=== PATIENT | male | born 1970 | race Caucasian/White ===

== ENCOUNTER 2016-09-02 10:13 | Emergency (ER) | payer BC, OTHER ==
[2016-09-02 10:35] VITALS: BP 134/77
--- NOTE | 2016-09-02 11:32 | RAD ---
Indication: Crushing injury. Attention first metatarsal. Comparison: None. Technique: AP, lateral, and oblique views RIGHT foot. Report: Negative for fracture or malalignment. Mild osteophytosis and joint space narrowing at the first metatarsal phalangeal joint. Unremarkable soft tissue contours. IMPRESSION: No traumatic injury evident. Mild osteoarthritis at the first metatarsal phalangeal joint.
--- NOTE | 2016-09-02 12:31 | UC ---
Lower Extremity/Ankle HPI - HPI Summary HPI Summary: RIGHT FOOT CAUGHT BETWEEN TRUCK AND WALL, CRUSHED AT 10 AM. NO BLEEDING NO BRUISING. PAIN WITH WALKING. - History of Current Complaint Chief Complaint: UCLowerExtremity Stated Complaint: FOOT INJURY Time Seen by Provider: 09/02/16 10:41 Hx Obtained From: Patient Onset/Duration: Sudden Onset, Lasting Hours, Still Present Severity Initially: Moderate Severity Currently: Moderate Aggravating Factor(s): Standing, Ambulation Alleviating Factor(s): Rest, Elevation Able to Bear Weight: No Related History: Occupational Injury - Risk Factors Gout Risk Factors: Negative DVT Risk Factors: Negative Septic Arthritis Risk Factor: Negative - Allergies/Home Medications Allergies/Adverse Reactions: Allergies Allergy/AdvReac Type Severity Reaction Status Date / Time Aspirin Allergy Unknown Unknown Verified 09/02/16 10:35 Reaction Details PMH/Surg Hx/FS Hx/Imm Hx Previously Healthy: Yes Endocrine History Of: Denies: Diabetes, Thyroid Disease Cardiovascular History Of: Denies: Cardiac Disorders, Hypertension Respiratory History Of: Denies: COPD, Asthma GI/ History Of: Denies: Ulcer Other History Of: Hepatitis C - Surgical History Surgical History: Yes Surgery Procedure, Year, and Place: inguinal hernia repair x4, right knee surgery - Family History Known Family History: Negative: Cardiac Disease, Hypertension, Diabetes Family History: NON CONTRIBUTORY - Social History Occupation: Employed Full-time Lives: With Family Alcohol Use: None Substance Use Type: Marijuana Substance Use Comment - Amount & Last Used: daily Smoking Status (MU): Heavy Every Day Tobacco Smoker Type: Cigarettes Amount Used/How Often: 1ppd Length of Time of Smoking/Using Tobacco: 23 years Have You Smoked in the Last Year: Yes - Immunization History Most Recent Influenza Vaccination: Never gets this Most Recent Tetanus Shot: UTD Review of Systems Constitutional: Negative Skin: Negative Eyes: Negative ENT: Negative Respiratory: Negative Cardiovascular: Negative Gastrointestinal: Negative Genitourinary: Negative Motor: Negative Neurovascular: Negative Musculoskeletal: Arthralgia, Edema, Myalgia Neurological: Negative Psychological: Negative All Other Systems Reviewed And Are Negative: Yes Physical Exam Triage Information Reviewed: Yes Appearance: Well-Appearing, No Pain Distress, Well-Nourished, Thin Vital Signs: Initial Vital Signs Temp 97.8 F 09/02/16 10:30 Pulse 79 09/02/16 10:30 Resp 20 09/02/16 10:30 BP 134/77 09/02/16 10:30 Pulse Ox 100 09/02/16 10:30 Vital Signs Reviewed: Yes Eye Exam: Normal Eyes: Positive: Conjunctiva Clear ENT Exam: Normal ENT: Positive: Normal ENT inspection, Hearing grossly normal, Pharynx normal, TMs normal Dental Exam: Normal Neck exam: Normal Neck: Positive: Supple, Nontender, No Lymphadenopathy Respiratory Exam: Normal Respiratory: Positive: Chest non-tender, Lungs clear, Normal breath sounds, No respiratory distress, No accessory muscle use Cardiovascular Exam: Normal Cardiovascular: Positive: RRR, No Murmur, Pulses Normal Abdominal Exam: Normal Musculoskeletal: Positive: Strength Intact, ROM Intact, Edema @ - MILD EDEMA RIGHT FOOT Neurological Exam: Normal Psychological Exam: Normal Skin Exam: Normal Lower Extremity Course/Dx - Differential Dx/Diagnosis Differential Diagnosis/HQI/PQRI: Fracture (Closed), Sprain, Strain Provider Diagnoses: CRUSH INJURY/SPRAIN RIGHT FOOT Discharge - Discharge Plan Condition: Stable Disposition: HOME Patient Education Materials: Foot Contusion (ED), Foot Sprain (ED), Crush Injury (ED) Forms: *Work Release Referrals: [facility] [Outside] [facility] [Outside] No Primary Care Phys,NOPCP [Primary Care Provider] - Sumit Banda MD [Medical Doctor] -
== END 2016-09-02 12:18 | disposition home or self-care (01) ==
LOC: UCEAST 10:13
DX: S93.601A Unspecified sprain of right foot, initial encounter (principal); W23.0XXA Caught, crushed, jammed, or pinched between moving objects, initial encounter; Y93.9 Activity, unspecified; Y92.9 Unspecified place or not applicable; Z88.6 Allergy status to analgesic agent; F12.90 Cannabis use, unspecified, uncomplicated; F17.210 Nicotine dependence, cigarettes, uncomplicated
CPT/HCPCS: 99213; G0463

== ENCOUNTER 2017-06-30 08:41 | Emergency (ER) | payer OTHER ==
[2017-06-30 08:57] VITALS: BP 145/79
--- NOTE | 2017-06-30 11:51 | UC ---
Tramaine Torres Nilda, scribed for Merlyn Reyes DO on 06/30/17 at 1024 . Back Pain HPI - HPI Summary HPI Summary: This patient is a 47 year old M presenting to [facility] [place] with a chief complaint of constant and rapidly expanding numbness on his right thigh, right buttocks, right lower back, and right side of abdomen for the past 4 days. Pt states that on 06/19/17, pt was heavy lifting at work and heard an audible pop and had severe lower back pain. The patient rates the pain 7/10 in severity. Symptoms aggravated by quick movement and coughing. Symptoms alleviated by rest. Patient reports RLE weakness, night diaphoresis (past few months), and recent constipation (not currently present). Patient denies fever, chills, rash, headache, abnormal urinary symptoms, ecchymosis, swelling, inability to have an erection, and bowel incontinence. Medications include ibuprofen for joint pain. - History of Current Complaint Chief Complaint: UCBackPain Stated Complaint: BACK INJURY Time Seen by Provider: 06/30/17 09:45 Hx Obtained From: Patient Onset/Duration: Sudden Onset, Lasting Days - 5 days, Still Present Timing: Constant Severity Initially: Moderate Severity Currently: Severe Pain Intensity: 7 Pain Scale Used: 0-10 Numeric Back Pain: Is Discrete @ - lower back pain, Radiates To - lower leg Character: Sharp, Aching Aggravating Factor(s): Movement, Cough Alleviating Factor(s): Rest Associated Signs And Symptoms: Positive: Weakness, Numbness, Tingling, Other - numbness on his right thigh, right buttocks, right lower back, and right side of abdomen, RLE weakness, night diaphoresis (past few months), and constipation (not currently present). Patient denies fever, chills, rash, headache, abnormal urinary symptoms, ecchymosis, swelling, inability to have an erection, and bowel incontinence.. Negative: Swelling, Redness, Bruising, Fever, Bladder Incontinence, Bowel Incontinence Related History: Occupational Injury - Risk Factors Cauda Equina Risk Factors: Saddle Anesthesia, Lower Extemity Numbness, Lower Extremity Weakness - Allergies/Home Medications Allergies/Adverse Reactions: Allergies Allergy/AdvReac Type Severity Reaction Status Date / Time Aspirin Allergy Unknown Unknown Verified 06/30/17 08:57 Reaction Details PMH/Surg Hx/FS Hx/Imm Hx Previously Healthy: Yes Other History Of: Hepatitis C - Surgical History Surgical History: Yes Surgery Procedure, Year, and Place: inguinal hernia repair x4, right knee surgery - Family History Known Family History: Negative: Cardiac Disease, Hypertension, Diabetes Family History: NON CONTRIBUTORY - Social History Alcohol Use: Occasionally Substance Use Type: None Substance Use Comment - Amount & Last Used: daily Smoking Status (MU): Heavy Every Day Tobacco Smoker Type: Cigarettes Amount Used/How Often: 1ppd Length of Time of Smoking/Using Tobacco: 23 years Have You Smoked in the Last Year: Yes Household Exposure Type: Cigarettes - Immunization History Most Recent Influenza Vaccination: NOT UTD Most Recent Tetanus Shot: UTD Review of Systems Constitutional: Other - negative fever and chills Skin: Other - night sweats; negative rash Gastrointestinal: Other - constipation, negative abnormal bowel symptoms Genitourinary: Other - negative abnormal urinary symptoms, inability to have an erection Musculoskeletal: Other: - numbness on his right thigh, right buttocks, right lower back, and right side of abdomen, RLE weakness Neurological: Other - negative headache All Other Systems Reviewed And Are Negative: Yes Physical Exam Triage Information Reviewed: Yes Appearance: Well-Appearing, Well-Nourished, Pain Distress - moderate Vital Signs: Initial Vital Signs Temp 99.3 F 06/30/17 08:52 Pulse 74 06/30/17 08:52 Resp 16 06/30/17 08:52 BP 145/79 06/30/17 08:52 Pulse Ox 99 06/30/17 08:52 Vital Signs Reviewed: Yes Eyes: Positive: Conjunctiva Clear. Negative: Discharge ENT: Positive: Hearing grossly normal. Negative: Muffled voice, Hoarse voice Neck exam: Normal Neck: Positive: Supple Respiratory: Positive: Lungs clear, Normal breath sounds, No respiratory distress, No accessory muscle use Cardiovascular: Positive: RRR, No Murmur Abdomen Description: Positive: Nontender, Soft. Negative: Distended, Guarding Bowel Sounds: Positive: Present Musculoskeletal: Positive: Other: - numbness in all dermatomes T10 through S5. It wraps around outside of thigh, in butt cheek in perineal area along medial thigh. Diffuse loss of strength and reflexes in RLE. Neurological: Positive: Alert, Other: - numbness in all dermatomes T10 through S5. It wraps around outside of thigh, in butt cheek in perineal area along medial thigh. Diffuse loss of strength and reflexes in RLE. Psychological Exam: Normal Psychological: Positive: Age Appropriate Behavior Skin Exam: Normal Skin: Positive: Other - warm, dry, normal color Back Pain Course/Dx - Course Course Of Treatment: This patient is a 47 year old M presenting to [facility] [place] with a chief complaint of constant numbness on his right thigh, right buttocks, right lower back, and right side of abdomen for the past 5 days. Pt states that on , pt was heavy lifting at work and heard an audible pop and felt severe lower back pain. The patient rates the pain 7/10 in severity. Symptoms aggravated by quick movement and coughing. Symptoms alleviated by rest. Patient reports RLE weakness and night diaphoresis (past few months). Patient denies fever, chills, rash, headache, abnormal urinary symptoms, ecchymosis, swelling, inability to have an erection, and abnormal bowel symptoms. Medications include ibuprofen for joint pain. Medications reviewed. Allergies reviewed. [1014] Dr. Garcia (ED Physician): gave report of pt and discussed evaluation plan. Pt is stable and will be transferred to [facility]. Pt is agreeable with this plan. - Differential Dx/Diagnosis Differential Diagnosis/HQI/PQRI: Cauda Equina Syndrome, Compressive Cord Syndrome, Herniated Disc, Strain Provider Diagnoses: cauda equina syndrom Discharge - Discharge Plan Condition: Stable Disposition: TRANS HIGHER LVL OF CARE FAC Referrals: No Primary Care Phys,NOPCP [Primary Care Provider] - The documentation as recorded by the Tramaine nguyen Nilda accurately reflects the service I personally performed and the decisions made by , Merlyn Reyes DO.
== END 2017-06-30 11:04 | disposition short-term general hospital (02) ==
LOC: UCEAST 08:41
DX: G83.4 Cauda equina syndrome (principal); F17.210 Nicotine dependence, cigarettes, uncomplicated; Z88.6 Allergy status to analgesic agent
CPT/HCPCS: 99203; G0463

== ENCOUNTER 2017-06-30 11:20 | Emergency (ER) | payer SELFPAY ==
--- NOTE | 2017-06-30 14:38 | RAD ---
HISTORY: Back pain, right leg weakness and numbness COMPARISONS: None TECHNIQUE: The following sequences were obtained of the thoracic spine: Sagittal T1 and T2-weighted images, sagittal STIR images, coronal T2-weighted images, and axial T2-weighted images. . FINDINGS: Localization is based on counting from C2 SPINAL CORD, CONUS, AND CAUDA EQUINA: The visualized spinal cord, conus, and cauda equina are normal in caliber, position, and signal intensity. ALIGNMENT: The alignment is normal. VERTEBRAL BODIES: There is multilevel anterolateral marginal osteophyte formation. There are mild Modic type I reactive endplate changes at T7-T8. JOINTS: There is osteoporosis of the costovertebral articulations. MUSCULATURE: Unremarkable INTERVERTEBRAL DISCS: There is diffuse loss of intervertebral disc height and T2 signal throughout the spine. AXIAL IMAGES: At T7-T8, there is broad-based disc bulge. At T12-L1, there is a right lateral recess superior disc extrusion measuring 0.5 cm in depth. There is no significant neural foraminal narrowing or central canal stenosis. SOFT TISSUES: The visualized soft tissues of the chest and upper abdomen are unremarkable. OTHER: None. IMPRESSION: 1. DEGENERATIVE DISC DISEASE AND OSTEOARTHRITIS. 2. THERE IS A RIGHT SIDED SUPERIOR DISC EXTRUSION AT T12-L1. 3. THERE IS NO SIGNIFICANT NEURAL FORAMINAL NARROWING OR CENTRAL CANAL STENOSIS
--- NOTE | 2017-06-30 14:42 | RAD ---
HISTORY: Right leg weakness and numbness COMPARISONS: MRI of the thoracic spine dated June 30, 2017 TECHNIQUE: The following sequences were obtained of the lumbar spine: Sagittal and axial T1- and T2-weighted images, coronal T2-weighted images, and sagittal STIR images. FINDINGS: SPINAL CORD, CONUS, AND CAUDA EQUINA: The visualized spinal cord, conus, and cauda equina are normal in caliber, position, and signal intensity. ALIGNMENT: There is straightening of the lumbar lordosis. VERTEBRAL BODIES: There is multilevel anterolateral marginal osteophyte formation. There are Modic type I reactive end plate changes at L4-L5. JOINTS: There is diffuse facet osteoarthritis. MUSCULATURE: Unremarkable INTERVERTEBRAL DISCS: There is diffuse loss of intervertebral disc height and T2 signal throughout the spine. AXIAL IMAGES: T11-T12: There is no significant neural foraminal narrowing or central canal stenosis. T12-L1: There is a right lateral recess superior disc extrusion measuring 0.6 cm in depth and 1.7 cm in craniocaudal dimension. This abuts and displaces the descending nerve roots on the right. There is no significant neural foraminal narrowing or central canal stenosis. L1-L2: There is a mild disc bulge. There is bilateral facet hypertrophy. There is no significant neural foraminal narrowing or central canal stenosis. L2-L3: There is broad-based disc bulge. There is mild bilateral neuroforaminal narrowing. There is no significant central canal stenosis. L3-L4: There is a broad-based disc bulge. There is bilateral facet hypertrophy. There is moderate bilateral neural foraminal narrowing. There is mild narrowing of the central canal. L4-L5: There is broad-based disc bulge. There is bilateral facet hypertrophy. There is moderate to severe bilateral neural foraminal narrowing. There is no significant central canal stenosis. L5-S1: There is bilateral facet hypertrophy. There is mild bilateral neural foraminal narrowing. There is no significant central canal stenosis. SOFT TISSUES: The visualized soft tissues of the abdomen are unremarkable. OTHER: None. IMPRESSION: 1. DEGENERATIVE DISC DISEASE AND OSTEOARTHRITIS. 2. THERE IS A RIGHT-SIDED DISC EXTRUSION AT T12-L1. 3. THERE IS MILD NARROWING OF THE CENTRAL CANAL AT L3-L4. 4. THERE IS MULTILEVEL NEURAL FORAMINAL NARROWING DESCRIBED ABOVE
--- NOTE | 2017-06-30 17:27 | RAD ---
HISTORY: Numbness, right-sided low back pain COMPARISONS: MRI dated June 30, 2017 TECHNIQUE: Multiple contiguous axial CT scans were obtained of the thoracic spine without intravenous contrast, with coronal and sagittal multiplanar reformations. FINDINGS: SPINAL CANAL: Evaluation of the central canal is limited on CT technique; however, there is no obvious canalicular mass or epidural hemorrhage. ALIGNMENT: The alignment is normal. VERTEBRAL BODIES: There is multilevel anterolateral marginal osteophyte formation. Multiple Schmorl's nodes are noted. JOINTS: There is osteoarthritis of the costovertebral articulations. MUSCULATURE: Unremarkable INTERVERTEBRAL DISCS: There is diffuse loss of intervertebral disc height throughout the spine. AXIAL IMAGES: There is no osseous central canal stenosis or neuroforaminal narrowing. The T12-L1 disc extrusion noted on MRI is not well-visualized on current CT examination. SOFT TISSUES: The visualized soft tissues of the chest and abdomen are unremarkable. OTHER: None IMPRESSION: DEGENERATIVE DISC DISEASE AND OSTEOARTHRITIS. NO OSSEOUS NEURAL FORAMINAL AREA OR CENTRAL CANAL STENOSIS.
--- NOTE | 2017-06-30 17:42 | RAD ---
HISTORY: Low back pain, right leg pain COMPARISONS: February 05, 2016 VIEWS: 3 , frontal, lateral flexion, lateral extension views of the lumbar spine FINDINGS: ALIGNMENT: There is straightening of the normal lumbar lordosis. There is no subluxation with flexion and extension VERTEBRAL BODIES: The vertebral body heights are normal. The interpedicular distances are normal. There is multilevel anterolateral marginal osteophyte formation. JOINTS: There is diffuse facet hypertrophic change INTERVERTEBRAL DISCS: There is diffuse loss of intervertebral disc height. SOFT TISSUE: Unremarkable. OTHER: The pelvis is unremarkable. The lung bases are clear. IMPRESSION: DEGENERATIVE DISC DISEASE AND OSTEOARTHRITIS.
[2017-06-30 17:58] VITALS: BP 144/93
--- NOTE | 2017-06-30 17:59 | ED ---
Gui Torres Angela, scribed for Alexey Garcia MD on 06/30/17 at 1134 . Back Pain - HPI Summary HPI Summary: This pt is a 47 y/o male presenting to [facility] from [facility] c/o lower back pain and RLE numbness x4 days. Pt reports that on 06/19/17, he was at work doing heavy lifting and heard a pop sustaining severe lower back pain. Pt states that he began having right lower leg numbness and right lower back numbness radiating around his umbilicus since , 06/26/17. He denies any urinary or bowel incontinence. Pt currently rates his pain 5-6 out of 10 in severity. His pain is aggravated by movement or sitting down. Pt notes he will be donating his kidney to his fiancee. - History of Current Complaint Chief Complaint: EDBackInjuryPain Stated Complaint: BACK PAIN Time Seen by Provider: 06/30/17 11:25 Hx Obtained From: Patient Onset/Duration: Lasting Days, Still Present Onset/Duration: Started Days Ago, Still Present Timing: Lasting Days Back Pain Location: Is Discrete @ - lower back Severity Currently: Moderate Pain Intensity: 6 Pain Scale Used: 0-10 Numeric Aggravating Symptom(s): Movement, Other - sitting down Associated Signs And Symptoms: Positive: Numbness - in right leg, right lower back, right side of abd. Negative: Bladder Incontinence, Bowel Incontinence - Allergies/Home Medications Allergies/Adverse Reactions: Allergies Allergy/AdvReac Type Severity Reaction Status Date / Time Aspirin Allergy Unknown Unknown Verified 06/30/17 08:57 Reaction Details PMH/Surg Hx/FS Hx/Imm Hx Endocrine/Hematology History: Denies: Hx Diabetes, Hx Thyroid Disease Cardiovascular History: Denies: Hx Hypertension Respiratory History: Denies: Hx Asthma, Hx Chronic Obstructive Pulmonary Disease (COPD) GI History: Denies: Hx Ulcer - Surgical History Surgery Procedure, Year, and Place: inguinal hernia repair x4, right knee surgery Infectious Disease History: Reports: Hx of Known/Suspected MRSA - MRSA 2009 right hand Denies: Hx Clostridium Difficile, Hx Hepatitis, Hx Human Immunodeficiency Virus (HIV), Hx Shingles, Hx Tuberculosis, Hx Known/Suspected VRE, Hx Known/ Suspected VRSA, History Other Infectious Disease - Family History Known Family History: Negative: Cardiac Disease, Hypertension, Diabetes - Social History Alcohol Use: Occasionally Hx Substance Use: Yes Substance Use Type: Reports: None Substance Use Comment - Amount & Last Used: daily Hx Tobacco Use: Yes Smoking Status (MU): Heavy Every Day Tobacco Smoker Type: Cigarettes Amount Used/How Often: 1ppd Length of Time of Smoking/Using Tobacco: 23 years Have You Smoked in the Last Year: Yes Review of Systems Negative: Fever, Chills Eyes: Negative ENT: Negative Cardiovascular: Negative Respiratory: Negative Gastrointestinal: Negative Negative: incontinence - urinary or bowel Musculoskeletal: Other - lower back pain Positive: Numbness - in right LE, right lower back, right side of abd All Other Systems Reviewed And Are Negative: Yes Physical Exam - Summary Physical Exam Summary: General: well-appearing Skin: warm, color reflects adequate perfusion, dry Head: normal Eyes: EOMI, LEENA ENT: normal Neck: supple, nontender Respiratory: CTA, breath sounds present Cardiovascular: RRR Abdomen: soft, nontender Bowel: present Musculoskeletal: tender in the low back to include the right buttock, worse over the L2-L3. There is pain with ROM of the legs. Patellar reflex is 1+ bilaterally. There is decreased strength on right leg with hip flexion, knee flexion, ankle plantarflexion and dorsiflexion. Neurological: A&O x3. Normal sensation below the knees. Decreased sensation on the right lateral thigh and right lateral abd below the xiphoid. Decreased sensation on right buttock. Psychological: affect/mood appropriate Triage Information Reviewed: Yes Vital Signs On Initial Exam: Initial Vitals Temp Pulse Resp BP Pulse Ox 99.3 F 77 18 147/95 97 06/30/17 11:27 06/30/17 11:27 06/30/17 11:27 06/30/17 11:27 06/30/17 11:27 Vital Signs Reviewed: Yes Diagnostics - Vital Signs Vital Signs Temp Pulse Resp BP Pulse Ox 06/30/17 15:33 99.5 F 80 20 164/84 97 06/30/17 11:28 68 97 06/30/17 11:27 99.3 F 77 18 147/95 97 06/30/17 11:26 147/95 - Laboratory Lab Statement: Any lab studies that have been ordered have been reviewed, and results considered in the medical decision making process. - Radiology Lumbar spine XR Xray Interpretation: Positive (See Comments) - IMPRESSION: Degenerative disc disease and osteoarthritis. Dr. Garcia has reviewed this radiology report. Radiology Interpretation Completed By: Radiologist - CT Thoracic spine CT CT Interpretation: No Acute Changes - IMPRESSION: Degenerative disc disease and osteoarthritis. No osseous neural foraminal area or central canal stenosis. Dr. Garcia has reviewed this radiology report. CT Interpretation Completed By: Radiologist - Additional Comments Diagnostic Additional Comments: Thoracic Spine MRI, as read per radiologist: IMPRESSION: 1. Degenerative disc disease and osteoarthritis. 2. There is a right sided superior disc extrusion at T12-L1. 3. There is no significant neural foraminal narrowing or cental canal stenosis. Dr. Garcia has reviewed this radiology report. Lumbar Spine MRI, as read per radiologist: IMPRESSION: 1. Degenerative disc disease and osteoarthritis. 2. There is a right-sided disc extrusion at T12-L1. 3. There is mild narrowing of the central canal at L3-L4. 4. There is multilevel neural foraminal narrowing as described above. Dr. Garcia has reviewed this radiology report. Re-Evaluation - Re-Evaluation First Eval Re-Evaluation Time: 15:50 Comment: I reviewed the MRI results with the pt. Back Pain Course/Dx - Course Course Of Treatment: Medications reviewed. Allergies noted. BP noted and advised to follow up with PCP. Thoracic spine MRI shows 1. Degenerative disc disease and osteoarthritis. 2. There is a right sided superior disc extrusion at T12-L1. 3. There is no significant neural foraminal narrowing or cental canal stenosis. Lumbar spine MRI shows 1. Degenerative disc disease and osteoarthritis. 2. There is a right-sided disc extrusion at T12-L1. 3. There is mild narrowing of the central canal at L3-L4. 4. There is multilevel neural foraminal narrowing as described above. Thoracic spine CT shows Degenerative disc disease and osteoarthritis. No osseous neural foraminal area or central canal stenosis. Lumbar spine XR: Degenerative disc disease and osteoarthritis. DISCUSSED WITH DR STYLES, NEUROSURGERY. PATIENT IS TO FOLLOW UP WITH HIM AN OUT PATIENT. RETURN TO THE ED IF WORSE. - Diagnoses Provider Diagnoses: Low back pain, Lumbar radiculopathy - Provider Notifications Discussed Care Of Patient With: Fabian Khan Time Discussed With Above Provider: 16:17 Instructed by Provider To: Other - I discussed the pt's case with Dr. Dimopoulos. Discharge - Discharge Plan Condition: Stable Disposition: HOME Patient Education Materials: Acute Low Back Pain (ED), Lumbar Radiculopathy (ED ) Forms: *Work Release Referrals: No Primary Care Phys,NOPCP [Primary Care Provider] - Fabian Khan MD [Medical Doctor] - Additional Instructions: FOLLOW UP WITH NEUROSURGERY, DR STYLES. CALL HIS OFFICE TOMORROW, 07/01/17, IN THE MORNING TO ARRANGE FOLLOW UP. RETURN TO THE EMERGENCY DEPARTMENT FOR ANY WORSENING OF YOUR CONDITION; WEAKNESS , NUMBNESS, DIFFICULTY CONTROLLING BOWEL OR BLADDER OR QUESTIONS OR CONCERNS. The documentation as recorded by the Gui nguyen Angela accurately reflects the service I personally performed and the decisions made by me, Alexey Garcia MD.
== END 2017-06-30 18:07 | disposition home or self-care (01) ==
LOC: ED 11:20
DX: M54.5 Low back pain (principal); M54.16 Radiculopathy, lumbar region; F17.210 Nicotine dependence, cigarettes, uncomplicated; R20.0 Anesthesia of skin
CPT/HCPCS: 72114; 72128; 72146; 72148; 99282

== ENCOUNTER 2017-10-02 07:30 | Observation (INO) | payer OTHER ==
[~2017-10-02 07:30] MED LIST: Bacitracin IV* 50,000 UNITS INJ ONE; Famotidine IV* 10 MG/ML 2 ML (20 mg) IV ONE; Lidocaine 1% MPF wEPI 200,000* 30 ML SDV ONE; Metoclopramide TAB* 10 MG PO ONE; Thrombin 5,000 UNITS* 1 APPLIC KIT - topical use - TOPICAL ONE
[2017-10-02] MEDS ORDERED: Famotidine IV* 10 MG/ML 2 ML (20 mg) ONE (07:51)
[2017-10-02] MEDS ORDERED: ceFAZolin 2 GM in 100 MLS NS (*) BAG IVPB ONE (07:52)
[2017-10-02] MEDS ORDERED: Buffered Lidocaine 0.9% SYRIN* 5 ML/SYR SYRINGE ONE (07:52)
[2017-10-02] MEDS ORDERED: Metoclopramide TAB* 10 MG ONE (07:52)
[2017-10-02] MEDS ORDERED: Artificial Tear OPHTH.OINT* 3.5 GM ONE (07:54)
[2017-10-02] MEDS ORDERED: Phenylephrine INJ* 10 MG/ML 1 ML VIAL (10 MG) ONE ×2 (07:57→09:08)
[2017-10-02] MEDS ORDERED: Propofol* 10 MG/ML 20 ML BTL IV PUSH ONE (07:57)
[2017-10-02] MEDS ORDERED: Dexamethasone IV* 4 MG/ML 1 ML (4 MG) ONE (07:57)
[2017-10-02] MEDS ORDERED: Lidocaine 2% PF * 5 ML VIAL ONE (07:57)
[2017-10-02] MEDS ORDERED: Sodium Chloride 0.9%* 10 ML ONE (07:57)
[2017-10-02] MEDS ORDERED: Mivacurium Chloride* 20 MG/10 ML VIAL IV ONE (07:57)
[2017-10-02] MEDS ORDERED: KETAMINE HCL* 50 MG/ML 10 ML VIAL ONE (07:57)
[2017-10-02] MEDS ORDERED: Ondansetron INJ* 2 MG/ML VIAL ONE (07:57)
[2017-10-02] MEDS ORDERED: fentaNYL* 50 MCG/ML 2 ML VIAL (100 MCG VIAL) ONE ×3 (07:57→12:08)
[2017-10-02] MEDS ORDERED: Remifentanil* 2 MG VIAL ONE ×2 (07:58→10:06)
[2017-10-02] MEDS ORDERED: Midazolam* 1 MG/ML 10 ML VIAL (10 MG) ONE (07:58)
[2017-10-02] MEDS ORDERED: Propofol* 500 MG/50 ML BTL ONE ×2 (08:05→10:06)
[2017-10-02] MEDS: Buffered Lidocaine 0.9% SYRIN* 5 ML/SYR SYRINGE INTRADERM ONE ×2 (08:17→08:21)
[2017-10-02] MEDS ORDERED: HYDROmorphone INJ* 1 MG/ML CARPUJECT SYRINGE ONE ×2 (10:55→11:25)
--- NOTE | 2017-10-02 11:22 | RAD ---
INDICATION: Neurosurgical fluoroscopic guidance COMPARISON: None FINDINGS: 15 seconds of fluoroscopy were provided for the neurosurgical department. Fluoroscopic spot imaging of the thoracoabdominal spine were obtained for operative control. CPT II Codes: 6045F (fluoro time doc)
[2017-10-02] MEDS ORDERED: Ondansetron INJ* 2 MG/ML VIAL IV PRN ×2 (11:52→12:11)
[2017-10-02] MEDS ORDERED: Naloxone* 0.4 MG/ML 1 ML VIAL IV PRN (11:52)
[2017-10-02] MEDS ORDERED: Levalbuterol 0.63MG/3ML NEB* UNIT OF USE INH PRN (11:52)
[2017-10-02] MEDS ORDERED: HYDROmorphone INJ* 2 MG/ML CARPUJECT SYRINGE ONE (12:08)
[2017-10-02] MEDS: fentaNYL* 50 MCG/ML 2 ML VIAL (100 MCG VIAL) IV PRN ×2 (12:09→12:19)
[2017-10-02] MEDS ORDERED: Magnesium Hydroxide LIQ* 30 ML UDC PO PRN (12:11)
[2017-10-02] MEDS ORDERED: Acetaminophen TAB* 325 MG PO PRN (12:11)
[2017-10-02] MEDS ORDERED: Nicotine Inhaler* 10 MG AMP INH PRN (12:19)
[2017-10-02] MEDS ORDERED: Mouth Piece, Nicotine* 1 EACH CARTRIDGE INH PRN ×2 (12:19)
[2017-10-02] MEDS: HYDROmorphone INJ* 1 MG/ML CARPUJECT SYRINGE IV PRN ×3 (12:20→12:54)
[2017-10-02] MEDS: HYDROcodone/ACETAMIN 5-325 MG* 1 TAB PO PRN ×3 (13:49→22:28)
[2017-10-02] MEDS: Nicotine PATCH 21 MG/24 HR* PATCH TRANSDERM SCH (13:49)
[2017-10-03] MEDS: HYDROcodone/ACETAMIN 5-325 MG* 1 TAB PO PRN ×4 (05:42→18:19)
[2017-10-03] MEDS ORDERED: Nicotine Patch Removal NOTE FOLLOW UP SCH (06:00)
[2017-10-03] MEDS: Nicotine PATCH 21 MG/24 HR* PATCH TRANSDERM SCH (09:47)
--- NOTE | 2017-10-03 17:43 | PN ---
Progress Note - Progress Note Date of Service: 10/03/17 SOAP: Subjective: []No events ON. Ambulates, Voids, Preop back pain resolved. Patient very satisfied, wants to go home. Objective: []Wound soft, clean, dry. MARLA removed. Patient tolerated procedure well, Catheter appeared to be intact. VSS, Afebrile. AAOx3, LEENA, CN II-XII grossly intact. Motor 5/5 all extremities. Sensory grossly intact to light touch, except preop decreased sensation right lateral abdominal wall Assessment: []47 yo m POD#1 Rt T12-L1 hemilaminectomy and fragmentectomy Plan: []Monitor VS, Neurochecks. DC planning. Ninfa Khan MD
[2017-10-03 19:41] VITALS: BP 130/81
--- NOTE | 2017-10-04 09:31 | OP ---
CC: Dr. Shawn Polanco * DATE OF OPERATION: 10/02/17 - ROOM #332 DATE OF : 66 SURGEON: Fabian Khan MD CO-SURGEON: Shawn Polanco MD ANESTHESIA: General. PRE-OP DIAGNOSIS: Right T12-L1 herniated nucleus pulposus. POST-OP DIAGNOSIS: Right T12-L1 herniated nucleus pulposus. OPERATIVE PROCEDURE: The patient underwent right T12 hemilaminectomy with partial medial facetectomy and transpedicular approach for removal of extruded disk fragment. ESTIMATED BLOOD LOSS: 35 cc. COMPLICATIONS: None. SUMMARY: The patient is a very pleasant 47-year-old gentleman who experienced an abrupt onset of back pain radiating to the right side of his abdomen with a right lower extremity pain. He developed a pseudohernia and MRI of his thoracic spine revealed right T12-L1 extruded disk fragment. He was offered the option of surgical intervention after failing conservative treatment modalities and after explaining expectations, limitations, possible complications of the procedure with complications including but not limited to bleeding, infection, risk of injury to adjacent structures, coma, paralysis, , need for additional procedures, anesthesia risk, stroke, blindness, cancer, instability, need for additional procedures in the future, anesthesia risks, the patient was agreeable to proceed with surgery and informed consent was obtained. He understood that his condition may not improve and in fact may get worse after the surgery and that he may need to have additional procedures in the future. He understood also that the operative plan may be modified according to intraoperative findings and conditions. DESCRIPTION OF PROCEDURE: The patient was brought to the operating room and was placed under general anesthesia by the anesthesia team. He was carefully positioned on the Tyler frame on a Benjamin table and all bony prominences were meticulously padded. His skin was prepped and draped in a sterile fashion. After appropriate surgical pause and patient identification, intraoperative fluoroscopic imaging was used to localize the appropriate surgical level. An incision over the spinous process of T12 was made in the midline after the skin was infiltrated with local anesthetic. A #10 blade was used for the incision. The incision was advanced with the use of Bovie cautery and self-retaining retractors were introduced further into the field. The dorsal fascia was divided in the right side and the paraspinal musculature was elevated with use of periosteal elevator and Bovie cautery . The right kylie-lamina of T12 was exposed as well as the transverse process and all the way down to the T12-L1 facet. A high speed drill and Kerrison punches were used to perform an extended hemilaminectomy of T12 with partial facet resection as well as resection of the inferior medial portion of the right T12 pedicle. Microscopic magnification was used for the procedure. The thecal sac and the T12 nerve root was readily identified and the posterior ligament was identified lateral to the thecal sac without any retraction of the thecal sac. After gentle coagulation of the posterior ligament, a medium size disk fragment was identified and was resected carefully without any pressure into the adjacent nerve root or into the the thecal sac. After copious irrigation and confirmation of meticulous hemostasis , the wound was closed by layers after placing #7 MARLA drain through a separate stab wound incision. A #0 Vicryl suture in an interrupted fashion was used in order to approximate the dorsal fascia while the subcutaneous tissue was approximated with interrupted 2-0 Vicryl sutures. The skin was covered with Dermabond. At the end of the procedure, all counts were reported to be correct. The patient remained hemodynamically stable throughout the case. Intraoperatively, the patient's neurophysiological monitoring was stable throughout the case. The patient was then turned supine, was extubated and was transferred to Recovery in excellent condition, moving all his extremities well. The case was done with two attending physicians because of the complexity of the case. [id number]/CPS #: [id number] CHUCK
== END 2017-10-03 18:30 | disposition home or self-care (01) ==
LOC: AA 07:46 → INTOOBSV 07:46 → SSU 13:14
PROVIDERS: ADMIT Neurological Surgery; ATTEND Neurological Surgery
PROC: 01N80ZZ Release Thoracic Nerve, Open Approach (ICD-10-PCS; 2017-10-02)
PROC: 0RB90ZZ Excision of Thoracic Vertebral Disc, Open Approach (ICD-10-PCS; principal; 2017-10-02 07:30)
DX: M51.14 Intervertebral disc disorders with radiculopathy, thoracic region (principal); M51.15 Intervertebral disc disorders with radiculopathy, thoracolumbar region; F17.200 Nicotine dependence, unspecified, uncomplicated
CPT/HCPCS: 76001; 87641; 96374; A9270-GY; G0378; J1100; J1170; J2001; J2250; J2405; J2704; J3010

== ENCOUNTER 2018-05-04 14:53 | Emergency (ER) | payer OTHER ==
--- OUTSIDE RECORDS SUMMARY | 2018-05-04 15:51 | XMS REPORT ---
:1970 External Reference #:[id number] Author Organization [employer] 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 Onset: 07/29/2017 Neck pain Fabain Khan MD Active Social History Type Date Description Comments Lives With Occupation Disabled 06/19/17 WC back injury Work Status Not Currently Working ETOH Use Rarely consumes alcohol Smoking Patient is a current smoker, smokes every day Recreational Drug Use Denies Drug Use Daily Caffeine Consumes on average 1 soda per day Exercise Type/Frequency Exercises regularly Allergies, Adverse Reactions, Alerts Date Description Reaction Status Severity Comments 03/16/2009 NKDA active Medications Medication Date Status Form Strength Qnty SIG Indications Ordering Provider No Active Active Unknown Medications 017 Clindamycin Hx 300mg 56units 1 tab by Chan 011 - mouth Young, every 6 M.D. 017 hours Percocet Hx Tablets 5-325mg 40tabs 1-2 po Dirk 011 - q4h prn Amaury, pain M.D. 017 Sertraline HCL Hx Tablets 100mg 30tabs 1 po qd 296.20 Thananart , 009 - Yuliet, M.D. 017 Sertraline HCL Hx Tablets 25mg 60tabs 1 tab po 296.20 Thananart , 009 - qd x 7 Yuliet, days, M.D. 009 then 2 tabs po qd Flexeril Hx Tablets 10mg 30tabs 1 po tid 724.2 Thananart, 009 - prn Yuliet, M.D. 017 Vicodin Hx Tablets 5-500mg 20tabs 1 q 4-6 724.2 Thananart, 009 - hrs prn Yuliet, pain M.D. 017 Bupropion HCL Hx Tablets ER 150mg 60tabs 1 tab po 300.00 Thananart, 009 - 24HR qd x 7 Yuliet, days, M.D. 017 then 2 tabs po qd Ibuprofen /0 Hx Capsules 200mg 800 mg Unknown 000 - daily 017 Vital Signs Date Vital Result Comment 05/04/2018 Height 70 inches 5'10" Heart Rate 76 /min BP Systolic Sitting 132 mmHg BP Diastolic Sitting 90 mmHg Respiratory Rate 20 /min Body Temperature 97.0 F 02/16/2018 Height 70 inches 5'10" Weight 157.00 lb BP Systolic Sitting 124 mmHg BP Diastolic Sitting 90 mmHg BMI (Body Mass Index) 22.5 kg/m2 01/22/2018 BP Systolic Sitting 140 mmHg Lue reg cuff BP Diastolic Sitting 92 mmHg Lue reg cuff Body Temperature 96.6 F 11/19/2017 Height 70 inches 5'10" Weight 157.00 lb BP Systolic Sitting 122 mmHg BP Diastolic Sitting 80 mmHg Pain Level 0 BMI (Body Mass Index) 22.5 kg/m2 10/10/2017 Height 70 inches 5'10" Weight 157.00 lb Heart Rate 86 /min BP Systolic Sitting 140 mmHg BP Diastolic Sitting 100 mmHg Body Temperature 98.0 F Pain Level 0 BMI (Body Mass Index) 22.5 kg/m2 09/23/2017 Height 70 inches 5'10" Weight 157.00 lb Heart Rate 78 /min BP Systolic Sitting 150 mmHg BP Diastolic Sitting 80 mmHg Pain Level 9 BMI (Body Mass Index) 22.5 kg/m2 08/19/2017 Height 70 inches 5'10" Weight 157.00 lb Heart Rate 74 /min BP Systolic Sitting 124 mmHg BP Diastolic Sitting 74 mmHg Pain Level 4 BMI (Body Mass Index) 22.5 kg/m2 07/29/2017 Height 70 inches 5'10" Weight 157.00 lb Heart Rate 80 /min BP Systolic Sitting 122 mmHg BP Diastolic Sitting 76 mmHg Pain Level 3 BMI (Body Mass Index) 22.5 kg/m2 07/08/2017 Height 70 inches 5'10" Weight 157.00 lb Heart Rate 70 /min BP Systolic Sitting 120 mmHg BP Diastolic Sitting 71 mmHg Pain Level 4 BMI (Body Mass Index) 22.5 kg/m2 05/29/2009 Height 70 inches 5'10" Weight 169.00 lb Heart Rate 82 /min BP Systolic Sitting 116 mmHg BP Diastolic Sitting 86 mmHg BMI (Body Mass Index) 24.2 kg/m2 05/01/2009 Height 70 inches 5'10" Weight 171.00 lb Heart Rate 84 /min BP Systolic Sitting 112 mmHg BP Diastolic Sitting 84 mmHg BMI (Body Mass Index) 24.5 kg/m2 03/16/2009 Height 70 inches 5'10" Weight 172.00 lb Heart Rate 88 /min BP Systolic Sitting 110 mmHg BP Diastolic Sitting 72 mmHg BMI (Body Mass Index) 24.7 kg/m2 Results Test Date Test Result H/L Range Note Urinalysis Profile 10/01/2017 Urine Color Straw Urine Appearance Clear Urine Specific [place] 1.003 Low 1.010-1.030 Urine pH 7.0 5-9 Urine Urobilinogen Negative Negative Urine Ketones Negative Negative Urine Protein Negative Negative Urine Leukocytes Negative Negative Urine Blood Negative Negative Urine Nitrite Negative Negative Urine Bilirubin Negative Negative Urine Glucose Negative Negative CBC Auto Diff 10/01/2017 White Blood Count 11.9 10^3/uL High 3.5-10.8 Red Blood Count 5.21 10^6/uL 4.0-5.4 Hemoglobin 16.4 g/dL 14.0-18.0 Hematocrit 47 % 42-52 Mean Corpuscular Volume 91 fL 80-94 Mean Corpuscular Hemoglobin 32 pg High 27-31 Mean Corpuscular HGB Conc 35 g/dL 31-36 Red Cell Distribution Width 12 % 10.5-15 Platelet Count 325 10^3/uL 150-450 Mean Platelet Volume 7 um3 Low 7.4-10.4 Abs Neutrophils 7.9 10^3/uL High 1.5-7.7 Abs Lymphocytes 2.7 10^3/uL 1.0-4.8 Abs Monocytes 0.8 10^3/uL 0-0.8 Abs Eosinophils 0.3 10^3/uL 0-0.6 Abs Basophils 0.2 10^3/uL 0-0.2 Abs Nucleated RBC 0 10^3/uL Granulocyte % 66.1 % 38-83 Lymphocyte % 22.7 % Low 25-47 Monocyte % 7.1 % High 0-7 Eosinophil % 2.8 % 0-6 Basophil % 1.3 % 0-2 Nucleated Red Blood Cells % 0 Basic Metabolic Panel 09/25/2017 Sodium 138 mmol/L 133-145 Potassium 4.0 mmol/L 3.5-5.0 Chloride 103 mmol/L 101-111 Co2 Carbon Dioxide 27 mmol/L 22-32 Anion Gap 8 mmol/L 2-11 Glucose 125 mg/dL High 70-100 Blood Urea Nitrogen 9 mg/dL 6-24 Creatinine 0.99 mg/dL 0.67-1.17 BUN/Creatinine Ratio 9.1 8-20 Calcium 9.4 mg/dL 8.6-10.3 Egfr Non- 80.3 >60 Egfr 103.3 >60 1 Type & Screen 09/25/2017 Patient Blood Type O Positive Antibody Screen NEGATIVE Inr/Protime 09/25/2017 Inr 0.86 0.77-1.02 CBC No Diff 09/25/2017 White Blood Count 13.0 10^3/uL High 3.5-10.8 Red Blood Count 4.90 10^6/uL 4.0-5.4 Hemoglobin 15.4 g/dL 14.0-18.0 Hematocrit 45 % 42-52 Mean Corpuscular Volume 92 fL 80-94 Mean Corpuscular Hemoglobin 31 pg 27-31 Mean Corpuscular HGB Conc 34 g/dL 31-36 Red Cell Distribution Width 13 % 10.5-15 Platelet Count 307 10^3/uL 150-450 Mean Platelet Volume 8 um3 7.4-10.4 Lead 05/01/2009 Lead < 1.0 g/dL 0-25.0 2 Lead Specimen Type VENOUS Lipid Profile (Trig/Chol/HDL) 05/01/2009 Triglyceride 140 mg/dL 40-200 Cholesterol 204 mg/dL High Less Than 200 3 High Density Lipoprotein 36 mg/dL Low 40-60 4 Cholesterol/HDL Ratio 5.67 AVERAGE High 1-4.97 Low Density Lipoprotein 140 mg/dL High Less Than 100 5 CBC With Electronic Diff 05/01/2009 White Blood Count 10.0 CUMM 4.8-10.8 Red Cell Count 4.86 CUMM 4.6-6.2 Hemoglobin 15.4 g/dL 14.0-18.0 Hematocrit 45 % 42-52 Mean Corpuscular Volume 93 um3 80-94 Mean Corpuscular Hemoglob 32 pg High 27-31 Mean Corpuscular HGB Cone 34 g/dL 32-36 Redcell Distribution WDTH 13 % 10.5-15 Platelet Count 318 CUMM 150-450 Mean Platelet Volume 7.1 um3 Low 7.4-10.4 Gran % 59.6 % 38-83 Lymph % 29.2 % 25-47 Mononuclear % 8.4 % 1-9 Eosinophil % 2.3 % 0-6 Basophil % 0.5 % 0-2 Abs Lymphs 2.9 1.0-4.8 Abs Mononuclear 0.8 0-0.8 Absolute Neutrophil Count 5.9 1.5-7.7 Abs Eosinophils 0.2 0-0.6 Abs Basophils 0 0-0.2 Laboratory test finding 05/01/2009 TSH 1.30 MIU/ML 0.34-5.60 Comp Metabolic Panel 05/01/2009 Sodium 137 mmol/L 135-145 Potassium 4.3 mmol/L 3.5-5.0 Chloride 97 mmol/L Low 101-111 Co2 (Carbon Dioxide) 28.0 mmol/L 22-32 Anion Gap 12.0 mmol/L High 2-11 6 Glucose 91 mg/dL 70-100 7 BUN 9 mg/dL 6-24 Creatinine 0.90 mg/dL 0.50-1.40 One Over Creatinine 1.10 BUN/Creatinine Ratio 10.0 8-20 Calcium 9.3 mg/dL 8.1-9.9 8 Total Protein 6.6 GM/DL 6.2-8.1 Albumin 4.2 GM/DL 3.6-5.4 Globulin 2.4 GM/DL 2-4 Albumin/Globulin Ratio 1.8 1-3 Bilirubin Total 0.8 mg/dL 0.4-1.5 9 Alkaline Phosphatase 95 U/L 39-117 Alt (SGPT) 43 U/L 17-63 Ast (Sgot) 28 U/L 12-42 eGFR Non- 99.3 > 60 eGFR 120.2 > 60 10 1 Because ethnic data is not always readily available, this report includes an eGFR for both -Americans and non- Americans. The National Kidney Disease Education Program (NKDEP) does not endorse the use of the MDRD equation for patients that are not between the ages of 18 and 70, are , have extremes of body size, muscle mass, or nutritional status, or are non- or non-. According to the National Kidney Foundation, irrespective of diagnosis, the stage of the disease is based on the level of kidney function: Stage Description GFR(mL/min/1.73 m(2)) 1 Kidney damage with normal or decreased GFR 90 2 Kidney damage with mild decrease in GFR 60-89 3 Moderate decrease in GFR 30-59 4 Severe decrease in GFR 15-29 5 Kidney failure <15 (or dialysis) 2 CDC CLASSIFICATIONS FOR BLOOD LEAD CONCENTRATION SCREENING IN CHILDREN: CDC CLASS* BLOOD LEAD CONCENTRATION (MCG/DL) I LESS THAN OR EQUAL TO 9 IIA 10 - 14 IIB 15 - 19 III 20 - 44 IV 45 - 69 V GREATER THAN OR EQUAL TO 70 *REFER TO CURRENT CDC GUIDELINES FOR COMMENTS AND INTERVENTIONS RECOMMENDED FOR EACH CLASS. CERTIFICATE OF BLOOD LEAD TESTING THIS IS TO CERTIFY THAT THE ABOVE NAMED PATIENT HAS BEEN TESTED FOR BLOOD LEAD. TESTING WAS PERFORMED BY [facility] WHICH IS LICENSED BY [facility] TO PERFORM BLOOD LEAD TESTING. THIS CERTIFICATE IS PROVIDED A SERVICE TO OUR CLIENTS AND THEIR PATIENTS WHO MAY BE REQUIRED TO PRODUCE DOCUMENTATION OF BLOOD LEAD TESTING. . 3 CHOLESTEROL INTERPRETATION: Desirable: Less than 200 MG/DL Borderline-High Risk: 200-239 MG/DL High-Risk: 240 MG/DL and over 4 HDL INTERPRETATION: Undesirable: High Risk: Less than 40 MG/DL Desirable: Low Risk: Greater than 60 MG/DL 5 LDL INTERPRETATION: Low Risk Optimal Level: LDL Less than 100 MG/DL Near or Above Optimal: LDL 100-129 MG/DL Borderline High Risk: LDL 130-159 MG/DL High Risk: LDL 160-189 MG/DL Very High Risk: LDL Greater than 189 MG/DL 6 Anion gap measurement may be of limited value in the presence of any alkalosis, especially in a combined acid base disorder. . 7 Note change in reference range as of 03/10/08. The change was based on recommendations from the [place] [employer]. 8 Please note change in reference range effective 07 . 9 A metabolite of Naproxen, O-desmethylnaproxen, has been shown to interfere with the [employer] method for measuring total bilirubin. Samples from patients who have taken Naproxen have shown spurious elevation in total bilirubin levels. 10 Because ethnic data is not always readily available, this report includes an eGFR for both -Americans and non- Americans. The National Kidney Disease Education Program (NKDEP) does not endorse the use of the MDRD equation for patients that are not between the ages of 18 and 70, are , have extremes of body size, muscle mass, or nutritional status, or are non- or non-. According to the National Kidney Foundation, irrespective of diagnosis, the stage of the disease is based on the level of kidney function: Stage Description GFR(mL/min/1.73 m(2)) 1 Kidney damage with normal or decreased GFR 90 2 Kidney damage with mild decrease in GFR 60-89 3 Moderate decrease in GFR 30-59 4 Severe decrease in GFR 15-29 5 Kidney failure <15 (or dialysis) Procedures Date CPT Code Description Status 10/02/2017 58007 Use Of Operating Microscope Completed 10/02/2017 56669 Use Of Operating Microscope Completed 10/02/2017 49138 Decompress Spinal Cord Thoracic, Transpedicular Completed Approach 10/02/2017 15254 Decompress Spinal Cord Thoracic, Transpedicular Completed Approach Encounters Type Date Location Provider CPT E/M Dx Office Visit 02/16/2018 [facility] 08925 Z48.89 1:30p Of Berto Khan MD R20.0 M51.15 R15.9 Office Visit 01/22/2018 11:30a [facility] 93665 Z48.89 Of Berto Khan MD M51.15 Office Visit 08/19/2017 9:30a [facility] 13057 M51.15 Of Berto Khan MD Office Visit 07/29/2017 2:00p [facility] 92389 M51.15 Of Berto Khan MD M54.2 M51.15 Office Visit 07/08/2017 1:30p [facility] 53209 M51.27 Of Berto Khan MD M51.15 Office Visit 05/29/2009 4:00p DO Not Use [facility], 19219 296.20 [place] M.D. 300.00 272.2 Office Visit 05/01/2009 3:20p DO Not Use [facility], 29178 296.20 [place] M.D. V77.91 V82.5 Office Visit 03/16/2009 1:00p DO Not Use [facility], 49738 V70.0 [place] M.D. 300.00 V15.82 724.2 Plan of Care Future Appointment(s):05/11/2018 12:00 pm - Fabian Khan MD at [facility]05/04/2018 - Fabian Khan MDM51.15 Intvrt disc disorders w radiculopathy, thoracolumbar region
--- NOTE | 2018-05-04 22:27 | RAD ---
EXAM: MR Thoracic Spine Without Intravenous Contrast CLINICAL HISTORY: 47 years old, male; Pain; Other: Back pain; Prior surgery; Surgery date: 1-6 months; Surgery type: L1/t12 discectomy/laminectomy; Patient HX: Progressively worsening back pain since february 04 with intermittent bowel incontinence; Additional info: Incontinence post back surgery t12-l1 TECHNIQUE: Magnetic resonance images of the thoracic spine without intravenous contrast in multiple planes. COMPARISON: [facility] MRI THORACIC SPINE W/O 06/30/2017 1:47 PM FINDINGS: Vertebrae: Unremarkable. No acute fracture. Marrow: The vertebral bone marrow has normal signal. Discs/spinal canal/neural foramina: There is multilevel degenerative disc disease with loss of signal and height. There is a central disc protrusion at T5-T6 indenting the ventral surface of the spinal cord. There is a left central and paracentral disc protrusion effacing the ventral thecal sac and abutting the left ventral surface of the spinal cord with mild flattening at T7-T8. At T9-T10 there is disc bulge with mild effacement of the ventral thecal sac. Moderate left neural foramina narrowing at T9-T10. Mild disc bulge effacing the ventral thecal sac at T12-L1. Spinal cord: No abnormal spinal cord signal. Soft tissues: Unremarkable. IMPRESSION: Multilevel degenerative disc disease Central protrusion at T5-T6 indenting the ventral thecal sac and abutting the ventral surface of the spinal cord. Central and left paracentral disc protrusion at T7-T8 effacing the ventral thecal sac and abutting the left ventral surface of the spinal cord with mild flattening. Disc bulge with effacement of the ventral thecal sac and moderate left neural foramina narrowing at T9-T10. To contact [facility] with a general question: Operations Center - [phone] For direct physician to physician contact: Physician Hotline - [phone] [facility] ([facility] Facility ID #[id number])
--- NOTE | 2018-05-04 22:47 | ED ---
Back Pain - HPI Summary HPI Summary: Patient with history of chronic back pain status post CVA 2017 and back surgery on T12/ L1 10/02/[address] Paige for further evaluation of 4 episodes of bowel incontinence since December with coughing or standing. Patient states back pain significantly improved post surgery, but has been constant at 2 /10 since. Patient denies increase in back pain, recent trauma, fever, cough, sore throat, CP, SOB, N/V/D, abdominal pain, change in urine. [facility] request MRI of T-spine, L-spine and CT of T-spine, L-spine. Patient denies IV drug use. - History of Current Complaint Chief Complaint: EDBackInjuryPain Stated Complaint: BACK PAIN Time Seen by Provider: 05/04/18 20:25 Hx Obtained From: Patient Onset/Duration: Gradual Onset Onset/Duration: Started Weeks Ago Timing: Intermittent Severity Initially: Mild Severity Currently: Mild Pain Intensity: 4 Pain Scale Used: 0-10 Numeric Character: Aching Aggravating Symptom(s): Movement Alleviating Symptom(s): Rest, Position Associated Signs And Symptoms: Positive: Bowel Incontinence - Allergies/Home Medications Allergies/Adverse Reactions: Allergies Allergy/AdvReac Type Severity Reaction Status Date / Time aspirin Allergy Unknown Verified 05/04/18 20:56 Reaction Details Home Medications: Home Medications NK [No Home Medications Reported] 05/04/18 [History Confirmed 05/04/18] PMH/Surg Hx/FS Hx/Imm Hx Endocrine/Hematology History: Denies: Hx Diabetes, Hx Thyroid Disease Cardiovascular History: Denies: Hx Hypertension, Hx Pacemaker/ICD Respiratory History: Denies: Hx Asthma, Hx Chronic Obstructive Pulmonary Disease (COPD) GI History: Denies: Hx Ulcer Musculoskeletal History: Reports: Hx Arthritis, Hx Back Problems, Hx Tendonitis - bilat hands Denies: Hx Scoliosis Sensory History: Denies: Hx Contacts or Glasses, Hx Hearing Aid Opthamlomology History: Denies: Hx Contacts or Glasses Neurological History: Denies: Hx Headaches, Other Neuro Impairments/Disorders Psychiatric History: Denies: Hx Panic Disorder - Cancer History Hx Chemotherapy: No - Surgical History Surgery Procedure, Year, and Place: right inguinal hernia repair x4, right knee surgery 2005, t12 discetomy Hx Anesthesia Reactions: No Infectious Disease History: Yes Infectious Disease History: Reports: Hx of Known/Suspected MRSA Denies: Hx Clostridium Difficile, Hx Hepatitis, Hx Human Immunodeficiency Virus (HIV), Hx Shingles, Hx Tuberculosis, Hx Known/Suspected VRE, Hx Known/ Suspected VRSA, History Other Infectious Disease, Traveled Outside the [place] in Last 30 Days - Family History Known Family History: Negative: Cardiac Disease, Hypertension, Diabetes Family History: NON CONTRIBUTORY - Social History Alcohol Use: Rare Hx Substance Use: Yes Substance Use Type: Reports: Marijuana Substance Use Comment - Amount & Last Used: daily for pain Hx Tobacco Use: Yes Smoking Status (MU): Light Every Day Tobacco Smoker Type: Cigarettes Amount Used/How Often: 1/2ppd smoked for 25 years Length of Time of Smoking/Using Tobacco: 23 years Have You Smoked in the Last Year: Yes Review of Systems Constitutional: Negative Eyes: Negative ENT: Negative Cardiovascular: Negative Respiratory: Negative Gastrointestinal: Negative Genitourinary: Negative Positive: incontinence Musculoskeletal: Other Skin: Negative Neurological: Negative Psychological: Normal All Other Systems Reviewed And Are Negative: Yes Physical Exam - Summary Physical Exam Summary: Muscles of back nontender to palpation. No evidence of mass or abscess noted along spinal column. PMS intact in bilateral distal lower extremities. Rectal tone intact. Sensation and perineal area intact. Triage Information Reviewed: Yes Vital Signs On Initial Exam: Initial Vitals Temp Pulse Resp BP Pulse Ox 97.6 F 78 16 138/103 96 05/04/18 15:30 05/04/18 15:30 05/04/18 15:30 05/04/18 15:30 05/04/18 15:30 Vital Signs Reviewed: Yes Appearance: Positive: Well-Appearing Skin: Positive: Warm Head/Face: Positive: Normal Head/Face Inspection Eyes: Positive: Normal Neck: Positive: Supple Respiratory/Lung Sounds: Positive: Clear to Auscultation Cardiovascular: Positive: Normal Abdomen Description: Positive: Nontender Musculoskeletal: Positive: Normal Neurological: Positive: Normal Psychiatric: Positive: Normal AVPU Assessment: Alert - Derek Coma Scale Best Eye Response: 4 - Spontaneous Best Motor Response: 6 - Obeys Commands Best Verbal Response: 5 - Oriented Coma Scale Total: 15 Diagnostics - Vital Signs Vital Signs Temp Pulse Resp BP Pulse Ox 05/04/18 17:17 98.3 F 73 20 138/94 97 05/04/18 15:30 97.6 F 78 16 138/103 96 - Laboratory Lab Statement: Any lab studies that have been ordered have been reviewed, and results considered in the medical decision making process. - CT MRI T spine CT Interpretation: Positive (See Comments) - Central protrusion at T5 through T6 indenting the ventral thecal sac and abutting the ventral surface of the spinal cord. Central and left paracentral disc protrusion at T7 through T8 effacing the ventral thecal sac at about in the left ventral surface of the spinal cord with mild flattening. Disc bulge with effacement of the ventral thecal sac and moderate left neural foraminal narrowing at T9 through T10 Back Pain Course/Dx - Course Course Of Treatment: Patient with history of chronic back pain status post CVA 2016 and back surgery on T12/ L1 10/02/[address] Paige for further evaluation of 4 episodes of bowel incontinence since December with coughing or standing. Patient states back pain significantly improved post surgery, but has been constant at 2/10 since. Patient denies increase in back pain, recent trauma, fever, cough, sore throat, CP, SOB, N/V/D, abdominal pain, change in urine. [facility] request MRI of T-spine, L-spine and CT of T-spine, L-spine. Patient denies IV drug use. Physical exam:Muscles of back nontender to palpation. No evidence of mass or abscess noted along spinal column. PMS intact in bilateral distal lower extremities. Rectal tone intact. Sensation and perineal area intact. Discussed results of MRI T-spine, L-spine and results of CT, T-spine, L-spine with Dr. Paige who stated patient could go home and follow-up at already scheduled appointment with him in clinic 1 week from now. Patient ready to go home. Patient refused pain medication. - Diagnoses Provider Diagnoses: Back pain Discharge - Sign-Out/Discharge Documenting (check all that apply): Patient Departure - Discharge Plan Condition: Stable Disposition: HOME Patient Education Materials: Back Pain (ED) Referrals: Fabian Khan MD [Primary Care Provider] - Additional Instructions: Follow-up with your surgeon Dr. Paige. Return to the ED for any new or worsening symptoms - Billing Disposition and Condition Condition: STABLE Disposition: Home
--- NOTE | 2018-05-04 22:49 | RAD ---
EXAM: MR Lumbar Spine Without Intravenous Contrast CLINICAL HISTORY: 47 years old, male; Pain; Low back pain; Prior surgery; Surgery date: 1-6 months; Surgery type: L1/t12 discectomy/laminectomy; Patient HX: Progressively worsening back pain since february 04 with intermittent bowel incontinence; Additional info: Incontinence post back surgery TECHNIQUE: Magnetic resonance images of the lumbar spine without intravenous contrast in multiple planes. COMPARISON: [facility] MRI LUMBAR SPINE W/O 06/30/2017 2:05 PM FINDINGS: Vertebrae: Modic typeII endplate changes at L4-L5 and L1-L2. There is increased mild increased STIR signal at the endplates of L4-L5 likely representing inflammatory changes. There is focal STIR signal at the inferior endplate of L2 likely inflammatory changes secondary to a Schmorl's node. No acute fracture. No spondylolisthesis. Spinal cord: Unremarkable. Normal signal. Soft tissues: Unremarkable. DISCS/SPINAL CANAL/NEURAL FORAMINA: L1-L2: Mild disc bulge. Mild bilateral neural foramina narrowing. No spinal canal stenosis. L2-L3: Disc bulge. No spinal canal stenosis. Bilateral facet hypertrophy. Mild right and [id number] left neural foramina narrowing.. L3-L4: Disc bulge. Bilateral facet hypertrophy. No spinal canal stenosis. Moderate bilateral neural foramina narrowing. L4-L5: Disc bulge. Bilateral facet hypertrophy. No neural foramina narrowing. Moderate bilateral neural foramina narrowing. L5-S1: Disc bulge. No spinal canal stenosis. Moderate bilateral neural foramina narrowing. Other findings: There is multilevel degenerative disc disease with loss of signal and height. IMPRESSION: Multilevel degenerative disc disease with neural foramina narrowing. Mild bilateral neural foramina narrowing at L1-L2, mild right and mild to moderate left at L2-L3, moderate bilateral L3-L4, L4-L5 and L5-S1. No spinal canal stenosis. No significant change from prior study of 06/30/2017. To contact [facility] with a general question: [facility] - [phone] For direct physician to physician contact: Physician Hotline - [phone] [facility] ([facility] Facility ID #[id number])
--- NOTE | 2018-05-04 23:34 | RAD ---
EXAM: CT Thoracic Spine Without Intravenous Contrast EXAM DATE/TIME: 05/04/2018 10:57 PM CLINICAL HISTORY: 47 years old, male; Pain; Pain in thoracic spine; Additional info: Back pain, incontinence TECHNIQUE: Axial computed tomography images of the thoracic spine without intravenous contrast. All CT scans at this facility use at least one of these dose optimization techniques: automated exposure control; mA and/or kV adjustment per patient size (includes targeted exams where dose is matched to clinical indication); or iterative reconstruction. Coronal and sagittal reformatted images were created and reviewed. COMPARISON: [facility] CT SPINE THORACIC W/O 06/30/2017 4:50 PM FINDINGS: Vertebrae: No spondylolisthesis. No acute fracture. Discs/Spinal canal/Neural foramina: Multilevel degenerative disc disease. There is loss of disc height and endplate osteophyte formation. Disc bulges seen at T12-L1 with moderate bilateral neural foramina narrowing.. There is disc bulge at T8-9 T10 with moderate bilateral neural foramina narrowing. Soft tissues: Unremarkable. IMPRESSION: No acute abnormality. Multilevel degenerative disc disease. To contact [facility] with a general question: Operations [facility] - [phone] For direct physician to physician contact: Physician Hotline - [phone] [facility] ([facility] Facility ID #[id number])
--- NOTE | 2018-05-04 23:45 | RAD ---
EXAM: CT Lumbar Spine Without Intravenous Contrast EXAM DATE/TIME: 05/04/2018 10:59 PM CLINICAL HISTORY: 47 years old, male; Pain; Low back pain; Additional info: Back pain, incontinence TECHNIQUE: Axial computed tomography images of the lumbar spine without intravenous contrast. All CT scans at this facility use at least one of these dose optimization techniques: automated exposure control; mA and/or kV adjustment per patient size (includes targeted exams where dose is matched to clinical indication); or iterative reconstruction. Coronal and sagittal reformatted images were created and reviewed. COMPARISON: [facility] MRI LUMBAR SPINE W/O 05/04/2018 9:28 PM FINDINGS: Vertebrae: No acute fracture. No spondylolisthesis. Discs/Spinal canal/Neural foramina: Multilevel degenerative changes most prominent at L1-L2, L2-L3 and L4-L5. L1-L2: Disc bulge. No spinal canal stenosis. Bilateral facet hypertrophy. Mild bilateral neural foramina narrowing. L2-L3: Disc bulge. No spinal canal stenosis. Bilateral facet hypertrophy. Mild right and [id number] left neural foramina narrowing. L3-L4: Disc bulge. Bilateral facet hypertrophy. No spinal canal stenosis. Moderate bilateral neural foramina narrowing. L4-L5: Disc bulge. Bilateral facet hypertrophy. No spinal canal stenosis. Moderate bilateral neural foramina narrowing. L5-S1: Disc bulge. No spinal canal stenosis. Moderate to severe bilateral neural foramina narrowing. Soft tissues: Unremarkable. IMPRESSION: No acute abnormality. Multilevel degenerative disc disease with neural foramina narrowing as described above. To contact [facility] with a general question: [facility] - [phone] For direct physician to physician contact: Physician Hotline - [phone] [facility] ([facility] Facility ID #[id number])
[2018-05-05 00:31] VITALS: BP 0/0
== END 2018-05-05 00:30 | disposition home or self-care (01) ==
LOC: ED 14:53
DX: M54.9 Dorsalgia, unspecified (principal); Z86.73 Personal history of transient ischemic attack (TIA), and cerebral infarction without residual deficits; F17.210 Nicotine dependence, cigarettes, uncomplicated; Z88.6 Allergy status to analgesic agent
CPT/HCPCS: 72128; 72131; 72146; 72148; 99282

== ENCOUNTER 2018-07-06 14:54 | Emergency (ER) | payer OTHER ==
[2018-07-06] MEDS ORDERED: Ketorolac INJ* 30 MG/ML 1 ML VIAL IM ONE (15:25)
[2018-07-06] MEDS ORDERED: Lidocaine PATCH 5%* 1 PATCH TRANSDERM ONE (15:26)
[2018-07-06] MEDS ORDERED: HYDROcodone/ACETAMIN 5-325 MG* 1 TAB PO ONE (15:27)
--- NOTE | 2018-07-06 15:31 | ED ---
Back Pain - HPI Summary HPI Summary: 48-year-old male presents with acute on chronic back pain for the past couple weeks. He he states the pain has been getting gradually worse and worse. He denies any injury. He states that had surgery in September and was pain free afterwards. He states since December he's been having gradual increase in pain. He has been having episodes where he has had a loss of bowel. No loss of bladder. Most recent episode was a week ago had one loss of bowel. He denies any saddle anesthesia. No fevers. No history of IV drug use. No urinary symptoms. He states he has pain in the right side of mid back above the location of his previous back surgery. He states he has numbness tingling remaining from his right midback to his right foot. Has been having gradually increasing pain with ambulation. He states is not able to see neurosurgery for couple months. He states he is here for pain management. - History of Current Complaint Chief Complaint: EDBackInjuryPain Stated Complaint: BACK PAIN Time Seen by Provider: 07/06/18 15:16 Pain Intensity: 9 - Allergies/Home Medications Allergies/Adverse Reactions: Allergies Allergy/AdvReac Type Severity Reaction Status Date / Time aspirin Allergy Unknown Verified 05/04/18 20:56 Reaction Details PMH/Surg Hx/FS Hx/Imm Hx Endocrine/Hematology History: Denies: Hx Diabetes, Hx Thyroid Disease Cardiovascular History: Denies: Hx Hypertension, Hx Pacemaker/ICD Respiratory History: Denies: Hx Asthma, Hx Chronic Obstructive Pulmonary Disease (COPD) GI History: Denies: Hx Ulcer Musculoskeletal History: Reports: Hx Arthritis, Hx Back Problems, Hx Tendonitis - bilat hands Denies: Hx Scoliosis Sensory History: Denies: Hx Contacts or Glasses, Hx Hearing Aid Opthamlomology History: Denies: Hx Contacts or Glasses Neurological History: Denies: Hx Headaches, Other Neuro Impairments/Disorders Psychiatric History: Denies: Hx Panic Disorder - Cancer History Hx Chemotherapy: No - Surgical History Surgery Procedure, Year, and Place: right inguinal hernia repair x4, right knee surgery 2005, t12 discetomy Hx Anesthesia Reactions: No Infectious Disease History: Yes Infectious Disease History: Reports: Hx of Known/Suspected MRSA Denies: Hx Clostridium Difficile, Hx Hepatitis, Hx Human Immunodeficiency Virus (HIV), Hx Shingles, Hx Tuberculosis, Hx Known/Suspected VRE, Hx Known/ Suspected VRSA, History Other Infectious Disease, Traveled Outside the [place] in Last 30 Days - Family History Known Family History: Negative: Cardiac Disease, Hypertension, Diabetes Family History: NON CONTRIBUTORY - Social History Alcohol Use: Rare Hx Substance Use: Yes Substance Use Type: Reports: Marijuana Substance Use Comment - Amount & Last Used: daily for pain Hx Tobacco Use: Yes Smoking Status (MU): Light Every Day Tobacco Smoker Type: Cigarettes Amount Used/How Often: 1/2ppd smoked for 25 years Length of Time of Smoking/Using Tobacco: 23 years Have You Smoked in the Last Year: Yes Review of Systems Negative: Fever Negative: Chest Pain Negative: Shortness Of Breath Positive: Myalgia - back pain All Other Systems Reviewed And Are Negative: Yes Physical Exam Triage Information Reviewed: Yes Vital Signs On Initial Exam: Initial Vitals Temp Pulse Resp BP Pulse Ox 97.2 F 75 18 171/96 99 07/06/18 14:57 07/06/18 14:57 07/06/18 14:57 07/06/18 14:57 07/06/18 14:57 Vital Signs Reviewed: Yes Appearance: Positive: Well-Appearing Skin: Positive: Warm, Dry Head/Face: Positive: Normal Head/Face Inspection Eyes: Positive: Normal, Conjunctiva Clear ENT: Positive: Pharynx normal Respiratory/Lung Sounds: Positive: Clear to Auscultation, Breath Sounds Present Cardiovascular: Positive: Normal, RRR Musculoskeletal: Positive: Limited @ - back, Other - tenderness thoracic back above scar Neurological: Positive: Sensory/Motor Intact - leg, Reflexes Intact - patella, Babinski Bilateral - normal Psychiatric: Positive: Normal Diagnostics - Vital Signs Vital Signs Temp Pulse Resp BP Pulse Ox 07/06/18 14:57 97.2 F 75 18 171/96 99 - Laboratory Lab Statement: Any lab studies that have been ordered have been reviewed, and results considered in the medical decision making process. - CT thoracic CT Interpretation Completed By: Radiologist Summary of CT Findings: IMPRESSION: Multilevel degenerative changes of the thoracic spine are similar to the. May 04, 2018 CT of the thoracic spine. There is no CT evidence of an acute fracture or. dislocation. Re-Evaluation - Re-Evaluation First Eval Re-Evaluation Time: 17:17 Comment: able to ambulate to bathroom but no improvement in pain. Back Pain Course/Dx - Course Course Of Treatment: 48 year old male presents with acute on chronic back pain for the past couple months. He has not taken anything for his pain. He states he is here for pain managment. no new injury. no fever. had an MRI a couple months ago as was having episodes of loss of bowel control and was followed up by neurosurgery. states continues to have these episodes with no change in these symptoms. last episode was two weeks ago. no urinary symptoms or saddle anasethesia. has numbness or tingling in right leg. on exam tenderness thoracic back. patella and babskini intact. gave pain medication and pain improved. CT thoracic similiar to previous. discussed will give a short course of pain medication for when patient severe and muscle relaxer as patient waits to be seen by neurosurgery again. patient understand and agrees with plan. - Diagnoses Differential Diagnosis/HQI/PQRI: Positive: Fracture, Herniated Disc, Strain Provider Diagnoses: Back pain Discharge - Sign-Out/Discharge Documenting (check all that apply): Patient Departure - Discharge Plan Condition: Good Disposition: HOME Prescriptions: Cyclobenzaprine TAB* [Flexeril 10 MG TAB*] 10 mg PO TID PRN #15 tab PRN Reason: Pain HYDROcodone/ACETAMIN 5-325 MG* [Grubbs 5-325 TAB*] 1 tab PO Q6H PRN #12 tab MDD 4 PRN Reason: Pain Patient Education Materials: Back Pain (ED) Referrals: Fabian Khan MD [Primary Care Provider] - Additional Instructions: Take muscle relaxers three times a day Use ibuprofen or Tylenol for pain every 6 hours, use norco every 6 hours for break through pain ice/heat area, move as much as possible Follow up with primary within 5 days Follow up with neurosurgery Return to ED if develop any new or worsening symptoms - Billing Disposition and Condition Condition: GOOD Disposition: Home
[2018-07-06 16:23] LABS: Urine Appearance Clear; Urine Bilirubin Negative (Negative); Urine Blood Negative (Negative); Urine Color Straw; Urine Glucose Negative (Negative); Urine Ketones Negative (Negative); Urine Nitrite Negative (Negative); Urine Protein Negative (Negative); Urine Specific Gravity 1.006 (1.010-1.030); Urine Urobilinogen Negative (Negative)
[2018-07-06 17:55] VITALS: BP 148/99
[2018-07-06] MEDS ORDERED: Lidocaine Patch REMOVE* 1 NOTE MISC SCH (21:00)
== END 2018-07-06 17:54 | disposition home or self-care (01) ==
LOC: ED 14:54
DX: M54.9 Dorsalgia, unspecified (principal); G89.29 Other chronic pain; Z88.0 Allergy status to penicillin; F17.210 Nicotine dependence, cigarettes, uncomplicated
CPT/HCPCS: 72128; 81003; 96372; 99282; A9270-GY; J1885

== ENCOUNTER 2019-01-12 15:06 | Emergency (ER) | payer BC, OTHER ==
[2019-01-12] MEDS ORDERED: oxyCODONE/Acetamin 5/325 MG* TAB PO ONE (16:00)
--- NOTE | 2019-01-12 16:00 | ED ---
Adult Trauma - HPI Summary HPI Summary: 48-year-old male presents with right rib injury since yesterday. He states he fell onto his right ribs. Denies any hematuria. No abdominal pain. Does have a history of nerve issues. Also has history of back pain. Denies any back pain with new injury. No neck pain. No head injury or loss conscious. He states taking a deep breath hurts. States that has a cough. No fevers. No history of respiratory illnesses. - History of Current Complaint Chief Complaint: EDChestWallPain Stated Complaint: RIB PAIN Time Seen by Provider: 01/12/19 15:30 Pain Intensity: 3 - Additional Pertinent History Primary Care Physician: [id number] - Allergy/Home Medications Allergies/Adverse Reactions: Allergies Allergy/AdvReac Type Severity Reaction Status Date / Time aspirin Allergy Unknown Verified 01/12/19 15:10 Reaction Details PMH/Surg Hx/FS Hx/Imm Hx Endocrine/Hematology History: Denies: Hx Diabetes, Hx Thyroid Disease Cardiovascular History: Denies: Hx Hypertension, Hx Pacemaker/ICD Respiratory History: Denies: Hx Asthma, Hx Chronic Obstructive Pulmonary Disease (COPD) GI History: Denies: Hx Ulcer Musculoskeletal History: Reports: Hx Arthritis, Hx Back Problems, Hx Tendonitis - bilat hands Denies: Hx Scoliosis Sensory History: Denies: Hx Contacts or Glasses, Hx Hearing Aid Opthamlomology History: Denies: Hx Contacts or Glasses Neurological History: Reports: Other Neuro Impairments/Disorders Denies: Hx Headaches Psychiatric History: Denies: Hx Panic Disorder - Cancer History Hx Chemotherapy: No - Surgical History Surgery Procedure, Year, and Place: right inguinal hernia repair x4, right knee surgery 2005, t12 discetomy Hx Anesthesia Reactions: No Infectious Disease History: No Infectious Disease History: Reports: Hx of Known/Suspected MRSA Denies: Hx Clostridium Difficile, Hx Hepatitis, Hx Human Immunodeficiency Virus (HIV), Hx Shingles, Hx Tuberculosis, Hx Known/Suspected VRE, Hx Known/ Suspected VRSA, History Other Infectious Disease, Traveled Outside the [place] in Last 30 Days - Family History Known Family History: Negative: Cardiac Disease, Hypertension, Diabetes Family History: NON CONTRIBUTORY - Social History Alcohol Use: None Hx Substance Use: Yes Substance Use Type: Reports: Marijuana Substance Use Comment - Amount & Last Used: daily for pain Hx Tobacco Use: Yes Smoking Status (MU): Heavy Every Day Tobacco Smoker Type: Cigarettes Amount Used/How Often: 1 PPD currently. 1/2ppd smoked for 25 years Length of Time of Smoking/Using Tobacco: 23 years Have You Smoked in the Last Year: Yes Review of Systems Negative: Fever Positive: Other - rib pain. Negative: Chest Pain Positive: Cough. Negative: Shortness Of Breath All Other Systems Reviewed And Are Negative: Yes Physical Exam Triage Information Reviewed: Yes Vital Signs On Initial Exam: Initial Vitals Temp Pulse Resp BP Pulse Ox 99 F 72 16 109/70 96 01/12/19 15:08 01/12/19 15:08 01/12/19 15:08 01/12/19 15:08 01/12/19 15:08 Vital Signs Reviewed: Yes Appearance: Positive: Well-Appearing Skin: Positive: Warm, Dry Head/Face: Positive: Normal Head/Face Inspection Eyes: Positive: Normal, Conjunctiva Clear ENT: Positive: Pharynx normal Respiratory/Lung Sounds: Positive: Clear to Auscultation, Breath Sounds Present , Other - tenderness over right lower ribs Cardiovascular: Positive: Normal, RRR Abdomen Description: Positive: Nontender, Soft Bowel Sounds: Positive: Present Musculoskeletal: Positive: Normal Neurological: Positive: Normal Psychiatric: Positive: Normal Diagnostics - Vital Signs Vital Signs Temp Pulse Resp BP Pulse Ox 01/12/19 15:08 99 F 72 16 109/70 96 - Laboratory Lab Statement: Any lab studies that have been ordered have been reviewed, and results considered in the medical decision making process. - Radiology rib Radiology Interpretation Completed By: Radiologist Summary of Radiographic Findings: IMPRESSION: Fracture of the anterolateral right fifth rib and possibly healing fracture of. the right ninth rib with no evidence of pneumothorax. Adult Trauma Course/Dx - Course Course Of Treatment: 48-year-old male presents with right rib injury since yesterday. He states he fell onto his right ribs. Denies any hematuria. No abdominal pain. Does have a history of nerve issues. Also has history of back pain. Denies any back pain with new injury. No neck pain. No head injury or loss conscious. He states taking a deep breath hurts. States that has a cough. No fevers. No history of respiratory illnesses. On exam tenderness over right lower ribs. Lungs clear auscultation. Abdomen soft nontender. X- ray shows fracture of fifth and potentially ninth rib. Gave Short course of pain medication. Told to take deep breath. Patient understands agrees with plan. - Diagnoses Differential Diagnosis/HQI/PQRI: Positive: Contusion(s), Fracture, Sprain Provider Diagnoses: Right rib fracture Discharge - Sign-Out/Discharge Documenting (check all that apply): Patient Departure Patient Received Moderate/Deep Sedation with Procedure: No - Discharge Plan Condition: Good Disposition: HOME Patient Education Materials: Rib Fracture (ED) Referrals: Art Inman MD [Primary Care Provider] - Additional Instructions: Take deep breath throughout the day Take Ibuprofen or Tylenol for pain every 6 hours, take percocet every 6 hours as needed for pain Follow up with primary care physician within 5 days Return to ED if develop new productive cough, fever, or any new or worsening symptoms - Billing Disposition and Condition Condition: GOOD Disposition: Home
[2019-01-12 16:58] VITALS: BP 107/76
== END 2019-01-12 16:47 | disposition home or self-care (01) ==
LOC: ED 15:06
DX: S22.31XA Fracture of one rib, right side, initial encounter for closed fracture (principal); W19.XXXA Unspecified fall, initial encounter; F17.210 Nicotine dependence, cigarettes, uncomplicated
CPT/HCPCS: 99282; A9270-GY

== ENCOUNTER 2019-03-18 07:30 | Inpatient (IN) | payer BC, OTHER ==
[2019-06-14] MEDS ORDERED: Buffered Lidocaine 1% SYRIN* 1 ML/SYRINGE INTRADERM ONE (13:22)
--- OUTSIDE RECORDS SUMMARY | 2019-06-15 05:48 | XMS REPORT | Summary of Care ---
:1970 Author Organization [facility] Address [address] [address] Care Team Providers Name Role Phone Art Inman Primary Care Provider Reason for Visit Reason Comments Worker's Compensation Back Pain mid back pain injury 05/19/2017 Refer to Department Only (Routine) Status Reason Specialty Diagnoses / Referred By Referred To Procedures Contact Contact Pending NEUROSURGERY / Diagnoses Herniation of intervertebral disc of thoracic region Lumbar radiculopathy, chronic [place], Review Neurosurgery MD Anirudh [address] [place] [address] Encounter Details Date Type Department Care Team Description 05/17/2019 Office Visit [facility] [place], Herniation of intervertebral disc of thoracic region (Primary Dx); 1 Maxwell Munoz MD Lumbar radiculopathy, chronic [address] [place] [address] 1 Maxwell Morales [phone] [address] [place] [address] Allergies Active Allergy Reactions Severity Noted Date Comments Calcium Acetylsalicylate Hives 07/31/2017 childhood documented as of this encounter (statuses as of 05/17/2019) Medications Medication Sig Dispensed Refills Start Date End Date Status ibuprofen (MOTRIN) 600 Take 600 mg by 0 Active MG Oral Tab mouth EVERY TWELVE HOURS NEEDED. duloxetine (CYMBALTA) 30 Take 30 mg by 0 Active MG Oral CAPSULE ENTERIC mouth TWICE COATED PARTICLES DAILY. amitriptyline (ELAVIL, Take 10 mg by 0 Active ENDEP) 10 MG Oral Tab mouth EVERY BEDTIME. pregabalin (LYRICA) 75 Take 75 mg by 0 Active MG Oral Cap mouth THREE TIMES DAILY. documented as of this encounter (statuses as of 05/17/2019) Active Problems Problem Noted Date Osteoarthrosis, unspecified whether generalized or localized, lower leg 2005 documented as of this encounter (statuses as of 05/17/2019) Social History Tobacco Use Types Packs/Day Years Used Date Current Every Day Smoker Cigarettes 0.5 35 Smokeless Tobacco: Never Used Alcohol Use Drinks/Week oz/Week Comments Not Currently special occasions Sex Assigned at Date Recorded Not on file Job Start Date Occupation Industry Not on file Not on file Not on file Travel History Travel Start Travel End No recent travel history available. documented as of this encounter Last Filed Vital Signs Vital Sign Reading Time Taken Comments Blood Pressure 128/80 05/17/2019 2:46 PM EDT Pulse - - Temperature - - Respiratory Rate - - Oxygen Saturation - - Inhaled Oxygen Concentration - - Weight 84.1 kg (185 lb 4.8 oz) 05/17/2019 2:46 PM EDT Height 170.2 cm (5' 7") 05/17/2019 2:46 PM EDT Body Mass Index 29.02 05/17/2019 2:46 PM EDT documented in this encounter Progress Notes Alexander Franco MD - 05/17/2019 2:30 PM EDT PATIENT: Antonio Leach : 1970 DATE OF SERVICE: 05/17/2019 REFERRING PRACTITIONER: Anirudh Kincaid PRIMARY CARE PROVIDER: Art Inman CHIEF COMPLAINT: Chief Complaint Patient presents with Worker's Compensation Back Pain mid back pain injury 05/19/2017 HISTORY OF PRESENT ILLNESS: Mr. Leach is a 48-year-old gentleman who suffered an on-the-job injury in April 2017. Ultimatelyhe underwent surgery. I have reviewed his older MRI scans and there is a small right-sided free fragment disc herniation along the T12 pedicle. It does not impact the spinal cord. I suspect this wasthe site of the patient's surgery. He has had multiple thoracic imaging studies as well as lumbar scans done since that time which do not show any nerve root compression. The patient is here for second opinion because he has been recommended a thoracolumbar fusion. Again I do not have any notes that would explain the rationale for this. He complains of a lot of numbness along the right leg and trunk. He denies bowel or bladder difficulty. He has a great deal of pain as well and wears a TLSO brace. Past Medical History: Diagnosis Date Cryptorchidism DDD (degenerative disc disease), cervical based on x ray Thoracic disc herniation 06/19/2017 work comp Tobacco user Torsion, testicular Tubular adenoma of colon 2019 5 years Past Surgical History: Procedure Laterality Date MUSCULOSKELETAL OP NEC right knee Family History Problem Relation Age of Onset Hypertension Mother Obesity Mother Diabetes Mother No Known Problems Father Social History Socioeconomic History Marital status: Spouse name: Not on file Number of children: Not on file Years of education: Not on file Highest education level: Not on file Occupational History Not on file Social Needs Financial resource strain: Not on file Food insecurity: Worry: Not on file Inability: Not on file Transportation needs: Medical: Not on file Non-medical: Not on file Tobacco Use Smoking status: Current Every Day Smoker Packs/day: 0.50 Years: 35.00 Pack years: 17.50 Types: Cigarettes Smokeless tobacco: Never Used Substance and Sexual Activity Alcohol use: Not Currently Comment: special occasions Drug use: Yes Frequency: 7.0 times per week Types: Marijuana Sexual activity: Not on file Lifestyle Physical activity: Days per week: Not on file Minutes per session: Not on file Stress: Not on file Relationships Social connections: Talks on phone: Not on file Gets together: Not on file Attends latter-day service: Not on file Active member of club or organization: Not on file Attends meetings of clubs or organizations: Not on file Relationship status: Not on file Intimate partner violence: Fear of current or ex partner: Not on file Emotionally abused: Not on file Physically abused: Not on file Forced sexual activity: Not on file Other Topics Concern Not on file Social History Narrative Out of work since work comp injury 07/06 Current Outpatient Medications Medication amitriptyline (ELAVIL, ENDEP) 10 MG Oral Tab duloxetine (CYMBALTA) 30 MG Oral CAPSULE ENTERIC COATED PARTICLES ibuprofen (MOTRIN) 600 MG Oral Tab pregabalin (LYRICA) 75 MG Oral Cap Allergies Allergen Reactions Asa [Calcium Acetylsalicylate] Hives childhood REVIEW OF SYSTEMS: Psychological ROS: negative Ophthalmic ROS: negative ENT ROS: negative Hematological and Lymphatic ROS: negative Endocrine ROS: negative Respiratory ROS: no cough, shortness of breath, or wheezing Cardiovascular ROS: no chest pain or dyspnea on exertion Gastrointestinal ROS: no abdominal pain, change in bowel habits, or black or bloody stools Genito-Urinary ROS: negative Musculoskeletal ROS: See HPI Neurological ROS: See HPI PHYSICAL EXAMINATION: BP 128/80 | Ht 5' 7" (1.702 m) | Wt 185 lb 4.8 oz (84.1 kg) | BMI 29.02 kg/m Body mass indexis 29.02 kg/m. GENERAL: alert, oriented, no acute distress. SKIN: normal, no rashes or abnormalities noted. HEENT: conjunctivae are clear, nasopharynx is with mild edema, pink mucosa, and clear secretions, oropharynx is clear. NECK: Normal range of motion LOWER BACK: Normal range of motion area there is a well-healed thoracolumbar incision. LUNGS: clear to auscultation bilaterally. HEART: Regular rate and rhythm without murmurs or gallops. ABDOMEN: Normal bowel sounds without distension NEUROLOGICAL: CONSTITUTIONAL: The patient appears to be in no acute distress. MUSCULOSKELETAL: Station and gait are normal. Motor tone is normal in both upper and lower extremities. Upper Extremity Deltoid Tricep Bicep Finger Extension Wrist Extension [employer] Change Attendant Right 5/5 5/5 5/5 5/5 5/5 5/5 5/5 Left 5/5 5/5 5/5 5/5 5/5 5/5 5/5 Lower Extremity Hip Flexion Knee Flexion Knee Extension Dorsi Flexion Plantar Flexion EHL Right 5/5 5/5 5/5 5/5 5/5 5/5 Left 5/5 5/5 5/5 5/5 5/5 5/5 NEUROLOGICAL: Oriented to time, place, and person. Memory appears to be grossly intact. Language function appears to be normal with normal receptive and motor speech function. CRANIAL NERVES: 2nd cranial nerve: Intact 3rd, 4th, and 6th cranial nerves: pupils equal round and reactive to light. Full EOMs. 5th cranial nerve: Intact 7th cranial nerve: Intact 8th cranial nerve: Intact 9th, 10th cranial nerves: Intact 11th cranial nerve: Intact. 12th cranial nerve: Intact SENSATION: There is loss of light touch and pinprick sensation along the upper aspect of the right leg. REFLEXES: Biceps BR Triceps Knee Ankle Right 2+ 2+ 2+ 2+ 2+ Left 2+ 2+ 2+ 2+ 2+ Interiano's sign: Negative Babinski: Negative COORDINATION: [id number] examination done well. IMPRESSION / PLAN: ICD-9-CM ICD-10-CM 1. Herniation of intervertebral disc of thoracic region 722.11 M51.24 REFER TO NEUROSURGERY XR THORACOLUMBAR SPINE 2 VIEWS 2. Lumbar radiculopathy, chronic 724.4 M54.16 REFER TO NEUROSURGERY Medical decision making: Flexion-extension x-rays of the thoracolumbar junction do not show any evidence of instability. At this point I do not see any ongoing nerve compression or spinal cord compression. No significant deformity is noted and no instability is seen in flexion-extension. In my opinion there is no real reason to consider any surgical treatment for this gentleman. I discussed this with him and recommended he consider continue conservative treatment such as physical therapy. Author: Alexander Franco MD 05/17/2019 15:12 documented in this encounter Plan of Treatment Date Type Specialty Care Team Description 06/01/2019 Office Visit Family Practice Art Inman MD [address] [place] [address] [phone] Name Type Priority Associated Diagnoses Date/Time XR THORACOLUMBAR SPINE 2 Imaging Routine Herniation of 05/17/2019 3:43 PM VIEWS intervertebral disc of EDT thoracic region Name Type Priority Associated Diagnoses Order Schedule XR THORACOLUMBAR SPINE 2 Imaging Routine Herniation of Expected: VIEWS intervertebral disc of 05/17/2019, thoracic region Expires: 05/17/2020 Health Maintenance Due Date Last Done Comments PNEUMOCOCCAL 0-64 YRS (1 of 1 1974 - PPSV23) HIV SCREENING 1983 ZOSTER IMMUNIZATION SERIES (1 2018 of 2) DEPRESSION SCREENING 09/25/2019 09/24/2018, 07/31/2017 DIABETES SCREENING 09/25/2019 09/24/2018 LIPID DISORDER SCREENING 09/25/2023 09/24/2018 COLONOSCOPY SCREENING 10/21/2023 10/20/2018 HPV IMMUNIZATION SERIES Aged Out No longer eligible based on patient's age to complete this topic MENINGOCOCCAL VACCINE IMM Aged Out No longer eligible based on patient's age to complete this topic documented as of this encounter Results Not on filedocumented in this encounter Visit Diagnoses Diagnosis Herniation of intervertebral disc of thoracic region - Primary Lumbar radiculopathy, chronic Thoracic or lumbosacral neuritis or radiculitis, unspecified documented in this encounter Insurance Payer Benefit Plan / Subscriber ID Effective Dates Phone Address Type Group WC [place] WC-WORKERS xxxxxxxx 2017-Prese Workers Comp COMP [facility] GENERIC documented as of this encounter Advance Directives Type Date Recorded Patient Consultant Dietitian Explanation Advance 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
--- OUTSIDE RECORDS SUMMARY | 2019-06-15 05:48 | XMS REPORT | Summary of Care ---
:1970 Author Organization [facility] Address [address] [facility] [place] [address] Care Team Providers Name Role Phone Art Inman Primary Care Provider Reason for Visit Reason Comments Other pt presents for pre op clearance Encounter Details Date Type Department Care Team Description 06/01/2019 Office Visit [facility] Art Inman MD Pre-op evaluation (Primary Dx); Practice [address] [facility] Chronic midline thoracic back pain; [address] [place] [address] [place] [address] [phone] Allergies Active Allergy Reactions Severity Noted Date Comments Calcium Acetylsalicylate Hives 07/31/2017 childhood documented as of this encounter (statuses as of 06/01/2019) Medications Medication Sig Dispensed Refills Start Date End Date Status ibuprofen (MOTRIN) Take 600 mg 0 Active 600 MG Oral Tab by mouth EVERY TWELVE HOURS NEEDED. duloxetine (CYMBALTA) Take 30 mg 0 Active 30 MG Oral CAPSULE by mouth ENTERIC COATED TWICE DAILY. PARTICLES pregabalin (LYRICA) Take 75 mg 0 Active 75 MG Oral Cap by mouth THREE TIMES DAILY. cyclobenzaprine Take 10 mg 0 Active (FLEXERIL) 10 MG Oral by mouth Tab THREE TIMES DAILY NEEDED for Muscle Spasm . amitriptyline Take 25 mg 0 Active (ELAVIL, ENDEP) 25 MG by mouth Oral Tab EVERY BEDTIME. amitriptyline Take 10 mg 0 06/01/2019 Discontinued (ELAVIL, ENDEP) 10 MG by mouth Oral Tab EVERY BEDTIME. documented as of this encounter (statuses as of 06/01/2019) Active Problems Problem Noted Date Osteoarthrosis, unspecified whether generalized or localized, lower leg 2005 documented as of this encounter (statuses as of 06/01/2019) Social History Tobacco Use Types Packs/Day Years Used Date Current Every Day Smoker Cigarettes 0.5 35 Smokeless Tobacco: Never Used Tobacco Cessation: Ready to Quit: Yes; Counseling Given: Yes Alcohol Use Drinks/Week oz/Week Comments Not Currently special occasions Sex Assigned at Date Recorded Not on file Job Start Date Occupation Industry Not on file Not on file Not on file Travel History Travel Start Travel End No recent travel history available. documented as of this encounter Last Filed Vital Signs Vital Sign Reading Time Taken Comments Blood Pressure 124/76 06/01/2019 2:39 PM EST Pulse 92 06/01/2019 3:01 PM EST Temperature - - Respiratory Rate - - Oxygen Saturation 97% 06/01/2019 2:39 PM EST Inhaled Oxygen Concentration - - Weight 83.9 kg (185 lb) 06/01/2019 2:39 PM EST Height 170.2 cm (5' 7") 06/01/2019 2:39 PM EST Body Mass Index 28.98 06/01/2019 2:39 PM EST documented in this encounter Progress Notes Art Inman MD - 06/01/2019 2:40 PM EST PATIENT: Antonio Leach : 1970 DATE OF SERVICE: 06/01/2019 [facility] work comp Employer [employer] DOI 06/19/17 Subjective SUBJECTIVE: Antonio Leach is a 48-y.o. male who presents to the office today for a preoperative consultationat the request of Dr Goodman , who will perform a thoracic lumbar T10-L2 Arthrodesis possibly T8-L3 06/15/19 . He was scheduled in February but insurance did not approve it till he had a hearing. Patient complains of back pain since carry a treadmill May of 2017 . Had 1 surgery 09/2017 andhe was doing better for awhile but the pain came back and been in pain since. Has been going to pain clinic for injections and meds neither helped and tried PT. Surgeon feels needs fusion now Patient denies cardiac symptoms: chest pain, palpitations, near-syncope, orthopnea, paroxysmal nocturnal dyspnea, lower extremity edema. Past history of pulmonary embolism/deep vein thrombosis: no. There is a history of bleeding complications: no Past history of anesthetic problem: no. Exercise capacity: Can you walk 2 blocks on level ground, or carry 2 bags of groceries up 2 flights of stairs? No due to pain , he "locks up" Count the number of risk factors in the revised [place] cardiac risk index. ( RCRI): 0 High risk procedure: eg vascular surgery, any open intraperitoneal or intrathoracic 0 History of ischemic heart disease (history of MO or a positive exercise test , current complaint of chest pain considered to be secondary to myocardial ischemia, use of nitrate therapy, or ECG with pathological Q waves; do not count prior coronary revascularization procedure unless one of the other criteria for ischemic heart disease is present) 0 Hx of CHF, either systolic or diastolic 0 History of cerebrovascular disease (TIA or Stroke) 0 Diabetes mellitus requiring treatment with insulin 0 Preoperative serum creatinine >2.0 mg/dl The risk of cardiac , nonfatal myocardial infarction, and nonfatal cardiac arrest according to the number of above risk predictors is estimated to be: No risk factors - 0.4 percent (95% CI: 0.1 - 0.8) Screening for sleep apnea: Stop-Bang Snoring: Do you snore loudly (louder than talking or heard through closed doors )? Tired: Do you often feel tired, fatigued, or sleepy during the day? Observed: Has anyone observed you stop breathing during your sleep? Pressure: Do you have or are you being treated for high blood pressure? BMI: >35 kg/m2? Age: >50? Neck circumference: >40 cm? Gender: Male? "Low risk" for JAMAL: <3 questions "yes" Screening for Alzheimer's 1. During the past 12 months, have you experienced confusion or memory loss that is happening more often or is getting worse? No 2. During the past 7 days, did you need help with others to perform everyday activities such as eating, getting dressed, grooming, bathing, walking, or using the toilet? No 3. During the past 7 days, did you need help from others to take care of things such as laundry and housekeeping, banking, shopping, using the telephone, food preparation, transportation, or taking your own medications? No Past Medical History: Diagnosis Date Cryptorchidism DDD (degenerative disc disease), cervical based on x ray Thoracic disc herniation 06/19/2017 work comp Tobacco user Torsion, testicular Tubular adenoma of colon 2018 5 years Family History Problem Relation Age of Onset Hypertension Mother Obesity Mother Diabetes Mother No Known Problems Father Current Outpatient Medications Medication Sig amitriptyline (ELAVIL, ENDEP) 25 MG Oral Tab Take 25 mg by mouth EVERY BEDTIME. cyclobenzaprine (FLEXERIL) 10 MG Oral Tab Take 10 mg by mouth THREE TIMES DAILY NEEDED forMuscle Spasm . duloxetine (CYMBALTA) 30 MG Oral CAPSULE ENTERIC COATED PARTICLES Take 30 mg by mouth TWICE DAILY. ibuprofen (MOTRIN) 600 MG Oral Tab Take 600 mg by mouth EVERY TWELVE HOURS NEEDED. pregabalin (LYRICA) 75 MG Oral Cap Take 75 mg by mouth THREE TIMES DAILY. No current facility-administered medications for this visit. Allergies Allergen Reactions Asa [Calcium Acetylsalicylate] Hives childhood Social History Not on file Not on file Tobacco Use Smoking status: Current Every Day Smoker Packs/day: 0.50 Years: 35.00 Pack years: 17.50 Types: Cigarettes Smokeless tobacco: Never Used Substance and Sexual Activity Alcohol use: Not Currently Comment: special occasions Drug use: Yes Frequency: 7.0 times per week Types: Marijuana Sexual activity: Not on file Lifestyle Relationships Other Topics Social History Narrative Out of work since work comp injury 07/06 REVIEW OF SYSTEMS: CONSTITUTIONAL: Getting deconditioned due to pain smoking quit date is day of surgery EARS, NOSE, MOUTH, THROAT and FACE: No uri . RESPIRATORY: Not use inhalers . GASTROINTESTINAL: No bowel symptoms . GENITOURINARY: No urine symptoms . . MUSCULOSKELETAL: Right knee bothers, . NEUROLOGICAL: Right leg feels weak . . The patient has dentures: Yes Objective OBJECTIVE: BP 124/76 (BP Location: Left arm, Patient Position: Sitting) | Pulse 92 | Ht 5 ' 7" (1.702 m) | Wt185 lb (83.9 kg) | SpO2 97% | BMI 28.98 kg/m Exam no apparent distress, , ears normal, oral-moist, no suspicious lesions. Dentures Neck supple, without masses. Heart regular tachycardia is new without murmur. Lungs clear. Abdomen soft non-tender no masses. Extremity no clubbing cyanosis or edema. The calves seem equal in size Neuro - no focal deficits Skin no suspicious lesions. Dress and hygiene good Good eye contact Thoughts and speech normal Affect Appropriate Mood normal EKG sinus tachy q in 3 only so no inferior MO ASSESSMENT: No contraindications to planned surgery 1. Pre-op evaluation would not start beta troy at this time 2. Chronic midline thoracic back pain - 3. Tobacco user 4. Proceed with surgery as planned. No food or liquids the morning of surgery. Call surgeon if develop respiratory illness, fever, or other illness.. 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
--- OUTSIDE RECORDS SUMMARY | 2019-06-15 05:48 | XMS REPORT | Continuity of Care Document ---
:1970 External Reference #:[id number] Author Name Miya Tavares Care Team Providers Name Role Phone [facility] - General Care Team Information License And Permit Specialist [facility] Art Inman MD - Family Medicine Care Team Information License And Permit Specialist Problems Active Problems Provider Date Thoracic and lumbosacral neuritis Fabian Khan MD Onset: 07/08/2017 Displacement of lumbar intervertebral disc Fabian Khan MD Onset: without myelopathy Neck pain Fabian Khan MD Onset: 07/29/2017 Localized, primary osteoarthritis of the Kisha Quirino Walker Onset: 08/19/2018 pelvic region and thigh Social History Type Date Description Comments Sex Unknown ETOH Use Denies alcohol use Tobacco Use Start: Unknown Patient is a current smoker, smokes every day Recreational Drug Use Regularly uses Marijuana Smoking Status Reviewed: 03/31/19 Patient is a current smoker, smokes every day Exercise Type/Frequency Does not exercise Allergies, Adverse Reactions, Alerts Active Allergies Reaction Severity Comments Date Aspirin rash 08/19/2018 Inactive Allergies NKDA 03/16/2009 Medications Active Medications SIG Qnty Indications Ordering Date Provider Tlso When Out of Bed Vashiram 01/15/2019 MD Bill Aleve 2 PO bid prn Unknown 220mg Tablets Cyclobenzaprine HCL take 1 tab by 90tabs Unknown 10mg mouth in the Tablets morning and afternoon and 2 at bedtime Amitriptyline HCL 1 tab by mouth Unknown 25mg at bedtime Tablets Immunizations Description No Information Available Vital Signs Date Vital Result Comment 03/31/2019 1:01pm Height 68.5 inches 5'8.50" Weight 170.00 lb BP Systolic 120 mmHg BP Diastolic 80 mmHg Pain Level 7 BMI (Body Mass Index) 25.5 kg/m2 03/15/2019 2:46pm Height 68.5 inches 5'8.50" Weight 170.00 lb Heart Rate 86 /min BP Systolic Sitting 142 mmHg BP Diastolic Sitting 102 mmHg Respiratory Rate 18 /min O2 % BldC Oximetry 96 % BMI (Body Mass Index) 25.5 kg/m2 Results Test Date Facility Test Result H/L Range Note Urinalysis Profile 03/11/2019 [facility] Urine Color Yellow [address] [place] [address] [phone] Urine Appearance Clear Urine Specific [place] 1.006 Low 1.010-1.030 Urine pH 8.0 Normal 5-9 Urine Urobilinogen Negative Negative Urine Ketones Negative Negative Urine Protein Negative Negative Urine Leukocytes Negative Negative Urine Blood Negative Negative Urine Nitrite Negative Negative Urine Bilirubin Negative Negative Urine Glucose Negative Negative Inr/Protime 03/11/2019 [facility] Inr 0.97 Normal 0.82-1.09 [address] [place], [place] [id number] [phone] Laboratory test 03/11/2019 [facility] Partial 39.1 High 26.0- 38.0 finding [address] [facility] [place] [address] Time PTT [phone] CBC No Diff 03/11/2019 [facility] White Blood 10.3 Normal 3.5- 10.8 [address] [facility] Count 10^3/[place] [address] [phone] Red Blood Count 5.40 10^6/uL Normal 4.18-5.48 Hemoglobin 17.2 g/dL Normal 14.0-18.0 Hematocrit 50 % Normal 42-52 Mean Corpuscular Volume 92 fL Normal 80-94 Mean Corpuscular Hemoglobin 32 pg High 27-31 Mean Corpuscular HGB Conc 35 g/dL Normal 31-36 Red Cell Distribution Width 13 % Normal 10-15 Platelet Count 324 10^3/uL Normal 150-450 Mean Platelet Volume 7.9 fL Normal 7.4-10.4 Basic Metabolic 03/11/2019 [facility] Sodium 142 mmol/L Normal 135-145 Panel [address] [place] [address] [phone] Potassium 4.3 mmol/L Normal 3.5-5.0 Chloride 103 mmol/L Normal 101-111 Co2 Carbon Dioxide 29 mmol/L Normal 22-32 Anion Gap 10 mmol/L Normal 2-11 Glucose 85 mg/dL Normal 70-100 Blood Urea Nitrogen 8 mg/dL Normal 6-24 Creatinine 0.85 mg/dL Normal 0.67-1.17 BUN/Creatinine Ratio 9.4 Normal 8-20 Calcium 10.5 mg/dL High 8.6-10.3 Egfr Non- 95.4 >60 Egfr 115.4 >60 2 Type & Screen 03/11/2019 [facility] Patient Blood Type O Positive [address] [place] [address] [phone] Antibody Screen NEGATIVE 1 Standard intensity warfarin therapeutic range: 2.0-3.0 High intensity warfarin therapeutic range: 2.5-3.5 2 Because ethnic data is not always readily [...] 5 Kidney failure <15 (or dialysis) Procedures Description No Information Available Medical Devices Description No Information Available Encounters Type Date Location Provider Dx Diagnosis Office Visit 03/31/2019 [facility] M54.14 Radiculopathy, 12:30p [facility] Khan MD thoracic region M41.9 Scoliosis, unspecified M51.36 Other intervertebral disc degeneration, lumbar region M48.062 Spinal stenosis, lumbar region with neurogenic claudication Office 03/15/2019 [facility] M54.14 Radiculopathy, Visit 3:00p [facility] Khan MD thoracic region M41.9 Scoliosis, unspecified M51.36 Other intervertebral disc degeneration, lumbar region M54.14 Radiculopathy, thoracic region Office 01/15/2019 [facility] M54.14 Radiculopathy, Visit 1:00p [facility] Khan MD thoracic region M54.14 Radiculopathy, thoracic region M51.36 Other intervertebral disc degeneration, lumbar region M51.36 Other intervertebral disc degeneration, lumbar region M41.9 Scoliosis, unspecified M41.9 Scoliosis, unspecified Office Visit 12/09/2018 [facility] M48.062 Spinal stenosis, 1:00p [facility] Khan MD lumbar region AT [place] with neurogenic claudication M47.26 Other spondylosis with radiculopathy, lumbar region Assessments Date Code Description Provider 03/31/2019 M54.14 Radiculopathy, thoracic region Fabian Khan MD 03/31/2019 M41.9 Scoliosis, unspecified Fabian Khan MD 03/31/2019 M51.36 Other intervertebral disc degeneration, Fabian Khan MD lumbar region 03/31/2019 M48.062 Spinal stenosis, lumbar region with Fabian Khan MD neurogenic claudication 03/15/2019 M54.14 Radiculopathy, thoracic region Fabian Khan MD 03/15/2019 M41.9 Scoliosis, unspecified Fabian Khan MD 03/15/2019 M51.36 Other intervertebral disc degeneration, Fabian Khan MD lumbar region 03/15/2019 M54.14 Radiculopathy, thoracic region Fabian Khan MD 03/12/2019 M54.14 Radiculopathy, thoracic region [place] 03/12/2019 M48.062 Spinal stenosis, lumbar region with [place] neurogenic claudication 01/26/2019 M48.062 Spinal stenosis, lumbar region with Fabian Khan MD neurogenic claudication 01/26/2019 M47.26 Other spondylosis with radiculopathy, Fabian Khan MD lumbar region 01/26/2019 M40.205 Unspecified kyphosis, thoracolumbar Fabian Khan MD region 01/15/2019 M54.14 Radiculopathy, thoracic region Fabian Khan MD 01/15/2019 M54.14 Radiculopathy, thoracic region Fabian Khan MD 01/15/2019 M51.36 Other intervertebral disc degeneration, Fabian Khan MD lumbar region 01/15/2019 M51.36 Other intervertebral disc degeneration, Fabian Khan MD lumbar region 01/15/2019 M41.9 Scoliosis, unspecified Fabian Khan MD 01/15/2019 M41.9 Scoliosis, unspecified Fabian Khan MD 12/09/2018 M48.062 Spinal stenosis, lumbar region with Fabian Khan MD neurogenic claudication 12/09/2018 M47.26 Other spondylosis with radiculopathy, Fabian Khan MD lumbar region Plan of Treatment Future Appointment(s):06/30/2019 1:30 pm - Fabian Khan MD at [facility]03/12/2019 - Ruma Green, PAM54.14 Radiculopathy, thoracic hnekydR60.062 Spinal stenosis, lumbar region with neurogenic claudication Functional Status Description No Information Available Mental Status Description No Information Available Referrals Refer to Dr Reason for Referral Status Appt Date Ashwin Neves M.D. Created [address] [place] [id number] [phone] Shawn Roper MD Created [address] [place] [address] [place] [address] [phone]
--- OUTSIDE RECORDS SUMMARY | 2019-06-15 05:48 | XMS REPORT | Summary of Care ---
:1970 Author Organization [facility] Address [address] [place] [address] Care Team Providers Name Role Phone Art Inman Primary Care Provider Encounter Details Date Type Department Care Team Description 05/17/2019 Hospital Encounter [facility] XR Outpatient [address] [place] [address] Allergies Active Allergy Reactions Severity Noted Date Comments Calcium Acetylsalicylate Hives 07/31/2017 childhood documented as of this encounter (statuses as of 05/19/2019) Medications Medication Sig Dispensed Refills Start Date [...] as of this encounter (statuses as of 05/19/2019) Active Problems Problem Noted Date Osteoarthrosis, unspecified whether generalized or localized, lower leg 2005 documented as of this encounter (statuses as of 05/19/2019) Social History Tobacco Use Types Packs/Day Years [...] of this encounter Last Filed Vital Signs Not on filedocumented in this encounter Plan of Treatment Date Type Specialty Care Team Description 06/01/2019 Office Visit Family Practice Art Inman MD [address] [place] [address] [phone] Name Type Priority Associated Diagnoses Date/Time XR THORACOLUMBAR SPINE 2 Imaging Routine Herniation of 05/17/2019 3:43 PM VIEWS intervertebral disc of EDT thoracic region Name Type Priority Associated Diagnoses Order Schedule XR THORACOLUMBAR SPINE Imaging Routine Herniation of 1 Occurrences 2 VIEWS intervertebral disc of starting 05/17/2019 thoracic region until 05/17/2019 Health Maintenance Due Date Last Done Comments [...] Herniation of intervertebral disc of thoracic region documented in this encounter Insurance Payer Benefit Plan / Subscriber ID Effective Dates Phone Address Type Group GENERIC ID [id number] xxxxxxxx 2017-Prese Workers Comp COMP [facility] GENERIC documented as of this encounter Advance Directives Type Date Recorded 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
--- OUTSIDE RECORDS SUMMARY | 2019-06-15 05:48 | XMS REPORT | Continuity of Care Document ---
:1970 External Reference #:[id number] Author Name JULIÁN Barclay (transmitted by agent of provider Yuliet Neely) Address [address] [place] [address] Care Team Providers Name Role Phone [facility] - General Care Team Information Cardiopulmonary Technician [facility] Art Inman MD - Family Medicine Care Team Information Cardiopulmonary Technician Problems Active Problems Provider Date Thoracic and [...] Use Regularly uses Marijuana Smoking Status Reviewed: 05/21/19 Patient is a current smoker, smokes every day Exercise Type/Frequency Does not exercise Allergies, Adverse Reactions, Alerts Active Allergies Reaction Severity Comments Date Aspirin rash 08/19/2018 Inactive Allergies NKDA 03/16/2009 Medications Active Medications SIG Qnty Indications Ordering Date Provider [place] When Out of Bed [place] 01/15/2019 MD Bill Aleve 2 PO bid prn Unknown 220mg Tablets Cyclobenzaprine HCL take 1 tab by 90tabs Unknown 10mg mouth in the Tablets morning and afternoon and 2 at bedtime Amitriptyline HCL 1 tab by mouth Unknown 25mg at bedtime Tablets Immunizations Description No Information Available Vital Signs Date Vital Result Comment 05/21/2019 2:22pm Height 68 inches 5'8" Weight 183.00 lb Heart Rate 96 /min BP Systolic 144 mmHg BP Diastolic 90 mmHg Pain Level 6 Mid Back /Right Hip BMI (Body Mass Index) 27.8 kg/m2 03/31/2019 1:01pm Height 68.5 inches 5'8.50" Weight 170.00 lb BP Systolic 120 mmHg BP Diastolic 80 mmHg Pain Level 7 BMI (Body Mass Index) 25.5 kg/m2 Results Test Acquired Date Facility Test Result H/L Range Note Urinalysis Profile 03/11/2019 [facility] Urine Color Yellow [address] [place] [address] [phone] Urine Appearance Clear Urine Specific [place] 1.006 Low 1.010-1.030 Urine pH 8.0 Normal 5-9 Urine Urobilinogen Negative Negative Urine Ketones Negative Negative Urine Protein Negative Negative Urine Leukocytes Negative Negative Urine Blood Negative Negative Urine Nitrite Negative Negative Urine Bilirubin Negative Negative Urine Glucose Negative Negative Inr/Protime 03/11/2019 [facility] Inr 0.97 Normal 0.82-1.[address] [place] [address] [phone] Laboratory test 03/11/2019 [facility] Partial 39.1 High 26.0- 38.[address] [place] [address] Time PTT [phone] CBC No Diff 03/11/2019 [facility] White Blood 10.3 Normal 3.5- 10.[address] Count 10^3/[place] [address] [phone] Red Blood Count 5.40 10^6/uL Normal 4.18-5.48 Hemoglobin 17.2 g/dL Normal 14.0-18.0 Hematocrit 50 % Normal 42-52 Mean Corpuscular Volume 92 fL Normal 80-94 Mean Corpuscular Hemoglobin 32 pg High 27-31 Mean Corpuscular HGB Conc 35 g/dL Normal 31-36 Red Cell Distribution Width 13 % Normal 10-15 Platelet Count 324 10^3/uL Normal 150-450 Mean Platelet Volume 7.9 fL Normal 7.4-10.4 Basic Metabolic 03/11/2019 [facility] Sodium 142 mmol/L Normal 135-145 Panel [address] [place] [address] [phone] Potassium 4.3 mmol/L Normal 3.5-5.0 Chloride 103 mmol/L Normal 101-111 Co2 Carbon Dioxide 29 mmol/L Normal 22-32 Anion Gap 10 mmol/L Normal 2-11 Glucose 85 mg/dL Normal 70-100 Blood Urea Nitrogen 8 mg/dL Normal 6-24 Creatinine 0.85 mg/dL Normal 0.67-1.17 BUN/Creatinine Ratio 9.4 Normal 8-20 Calcium 10.5 mg/dL High 8.6-10.3 Egfr Non- 95.4 >60 Egfr 115.4 >60 2 Type & Screen 03/11/2019 [facility] Patient Blood Type O Positive [address] [place] [address] [phone] Antibody Screen NEGATIVE 1 Standard intensity warfarin [...] lumbar region M54.14 Radiculopathy, thoracic region Office Visit 03/12/2019 [facility] [place], M51.15 Intvrt disc 9:30a [facility] w radiculopathy, thoracolumbar region Office Visit 01/15/2019 [facility] [place] M54.14 Radiculopathy, 1:00p [facility] MD thoracic region M54.14 Radiculopathy, thoracic region M51.36 Other intervertebral disc degeneration, lumbar region M51.36 Other intervertebral disc degeneration, lumbar region M41.9 Scoliosis, unspecified M41.9 Scoliosis, unspecified Office Visit 12/09/2018 [facility] [place] M48.062 Spinal stenosis, 1:00p [facility] Khan MD lumbar region AT [place] with neurogenic claudication M47.26 Other spondylosis with radiculopathy, lumbar region Assessments Date Code Description Provider 05/06/2019 M48.062 Spinal stenosis, lumbar region with Fabian Khan MD neurogenic claudication 05/06/2019 M47.26 Other spondylosis with radiculopathy, Fabian Khan MD lumbar region 05/06/2019 M40.205 Unspecified kyphosis, thoracolumbar Fabian Khan MD region 05/06/2019 M51.36 Other intervertebral disc degeneration, Fabian Khan MD lumbar region 03/31/2019 M54.14 Radiculopathy, thoracic region Fabian Khan [...] Radiculopathy, thoracic region Fabian Khan MD 03/12/2019 M51.15 Intervertebral disc disorders with JULIÁN Barclay radiculopathy, thoracolumbar region 01/26/2019 M48.062 Spinal stenosis, lumbar region with [...] MD lumbar region Plan of Treatment Future Appointment(s):06/23/2019 10:30 am - JULIÁN Barclay at [facility]06/15/2019 7:30 am - JULIÁN Barclay at [facility]06/15/2019 7:30 am - Fabian Khan MD at [facility]06/30/2019 1:30 pm - Fabian Khan MD at [facility] Functional Status Description No Information Available Mental Status Description No Information Available Referrals Refer to Dr Reason for Referral Status Appt Date Ashwin Neves M.D. Created [address] [place] [address] [id number] [phone] Shawn Roper MD Created [address] [place], [place] [id number] [phone]
[2019-06-15] MEDS ORDERED: Dexamethasone IV* 4 MG/ML 1 ML (4 MG) IV SLOW PU ONE (06:00)
[2019-06-15] MEDS ORDERED: Lactated Ringers 1000 ML Bag* 1,000 ML IV SCH ×2 (06:00→15:00)
[2019-06-15] MEDS ORDERED: Famotidine IV* 10 MG/ML 2 ML (20 mg) IV ONE (06:00)
[2019-06-15] MEDS ORDERED: Buffered Lidocaine 1% SYRIN* 1 ML/SYRINGE INTRADERM ONE (06:31)
[2019-06-15] MEDS ORDERED: Famotidine IV* 10 MG/ML 2 ML (20 mg) ONE (06:31)
[2019-06-15] MEDS ORDERED: ceFAZolin 2 GM in NS PREMIX(*) 2 GM/100 ML BAG IVPB ONE ×2 (06:31→11:46)
[2019-06-15] MEDS ORDERED: Dexamethasone IV* 4 MG/ML 1 ML (4 MG) ONE (06:31)
[2019-06-15] MEDS ORDERED: Bupivacaine 0.25% SDV* 30 ML ONE (06:48)
[2019-06-15] MEDS ORDERED: Bacitracin INJECTION* 50,000 UNITS ONE ×3 (06:48→12:13)
[2019-06-15] MEDS ORDERED: Lidocaine 2% PF * 5 ML VIAL ONE (07:04)
[2019-06-15] MEDS ORDERED: Propofol* 10 MG/ML 20 ML BTL ONE ×2 (07:04→11:05)
[2019-06-15] MEDS ORDERED: Midazolam* 1 MG/ML 5 ML VIAL (5 MG) ONE (07:04)
[2019-06-15] MEDS ORDERED: fentaNYL* 50 MCG/ML 5 ML VIAL (250 MCG VIAL) ONE (07:04)
[2019-06-15] MEDS ORDERED: Succinylcholine* 20 MG/ML 10 ML VIAL ONE (07:34)
[2019-06-15] MEDS ORDERED: Rocuronium* 10 MG/ML VIAL ONE (07:35)
[2019-06-15] MEDS ORDERED: Bupivacaine 0.25% EPI 200,000* 30 ML SDV ONE (07:40)
[2019-06-15] MEDS ORDERED: Propofol* 500 MG/50 ML BTL ONE (07:49)
[2019-06-15] MEDS ORDERED: Remifentanil* 2 MG VIAL ONE ×2 (07:50→10:20)
[2019-06-15] MEDS ORDERED: Phenylephrine 40 MCG/ML SYRINGE ONE (08:21)
[2019-06-15] MEDS ORDERED: Morphine 4 MG/ML VIAL (1 ml) 4 MG/ML VIAL IV PRN (09:14)
[2019-06-15] MEDS ORDERED: Naloxone* 0.4 MG/ML 1 ML VIAL IV PRN (09:14)
[2019-06-15] MEDS ORDERED: oxyCODONE/Acetamin 5/325 MG* TAB PO PRN (09:14)
[2019-06-15] MEDS ORDERED: DiMENhydriNATE IV* 50 MG/ML VIAL IV PUSH PRN (09:14)
[2019-06-15] MEDS ORDERED: HYDROcodone/ACETAMIN 5-325 MG* 1 TAB PO PRN (09:14)
[2019-06-15] MEDS ORDERED: Phenylephrine 10 MG/ML VIAL* 1 ML VIAL ONE (09:56)
[2019-06-15] MEDS ORDERED: Ondansetron INJ* 2 MG/ML VIAL ONE (12:17)
[2019-06-15] MEDS ORDERED: Vancomycin(*) 1,000 MG VIAL ONE (12:18)
[2019-06-15] MEDS ORDERED: fentaNYL* 50 MCG/ML 2 ML VIAL (100 MCG VIAL) ONE ×3 (12:26→13:55)
[2019-06-15] MEDS ORDERED: HYDROmorphone INJ1* 1 MG/ML SYRINGE ONE ×2 (12:57→13:05)
[2019-06-15] MEDS ORDERED: KETAMINE HCL* 50 MG/ML 10 ML VIAL ONE (13:08)
[2019-06-15] MEDS ORDERED: Labetalol IV* 5 MG/ML 20 ML VIAL ONE (13:15)
[2019-06-15] MEDS: fentaNYL* 50 MCG/ML 2 ML VIAL (100 MCG VIAL) IV PRN ×2 (13:56→14:39)
[2019-06-15] MEDS ORDERED: Acetaminophen TAB* 325 MG PO PRN (14:05)
[2019-06-15] MEDS ORDERED: Magnesium Hydroxide LIQ* 30 ML UDC PO PRN (14:05)
[2019-06-15] MEDS ORDERED: Ondansetron INJ* 2 MG/ML VIAL IV PRN (14:05)
[2019-06-15] MEDS ORDERED: oxyCODONE/Acetamin 5/325 MG* TAB ONE (14:43)
[2019-06-15] MEDS ORDERED: Cyclobenzaprine TAB* 10 MG PO PRN (16:49)
[2019-06-15] MEDS: Nicotine PATCH 21 MG/24 HR* PATCH TRANSDERM SCH (18:25)
[2019-06-15] MEDS: HYDROcodone/ACETAMIN 5-325 MG* 1 TAB PO PRN (20:03)
[2019-06-15] MEDS: DULoxetine DR CAP* 30 MG CAP.DR PO SCH (20:39)
[2019-06-15] MEDS: Pregabalin CAP(*) 25 MG PO SCH (20:39)
[2019-06-15] MEDS ORDERED: Enoxaparin(*) 40 MG/0.4 ML SYR SUBCUT SCH (21:00)
[2019-06-15] MEDS ORDERED: Nicotine Patch Removal NOTE PATCH OFF SCH (21:00)
[2019-06-15] MEDS ORDERED: Amitriptyline TAB* 25 MG PO SCH (21:00)
--- NOTE | 2019-06-15 21:07 | HP ---
CC: Art Inman MD; Fabian Khan MD * HISTORY AND PHYSICAL: DATE OF ADMISSION: 06/15/19 PRIMARY CARE PHYSICIAN: Art Inman MD NEUROSURGEON: Fabian Khan MD HEALTHCARE PROXY: India Leach, his , phone number [phone]. CODE STATUS: Full. CHIEF COMPLAINT: Admission, status post T10 through L3 fusion. HISTORY OF PRESENT ILLNESS: Mr. Leach is a 48-year-old man with a history of chronic lower back pain, active tobacco use, who is presenting for neurosurgical T10 through L3 fusion. The patient reports back pain since May 2017 after carrying a treadmill. He had a surgery in September 2017 and felt that the pain improved a little bit, but then worsened. He was unable to have insurance approval until now. So the patient was admitted. Procedure was performed today. Operative note is still pending. Medicine team was asked to admit the patient with neurosurgical consultation. Interview was performed in PACU and the patient denied complaints. He reports he has a good appetite and is looking forward to being able to eat again. PAST MEDICAL HISTORY: 1. Chronic back pain, degenerative disk disease, one neurosurgical procedure in September 2017. 2. Active tobacco use. 3. Tubular adenoma of colon, 2019. 4. Right knee surgery. HOME MEDICATIONS: 1. Pregabalin 75 mg t.i.d. 2. Duloxetine 30 mg b.i.d. 3. Amitriptyline 25 mg at bedtime. 4. Cyclobenzaprine 10 mg 3 times a day as needed for back spasms. 5. Ibuprofen 800 mg every 6 hours as needed for back pain. ALLERGIES: ASPIRIN caused hives as a child. FAMILY HISTORY: Mother with hypertension, obesity, and diabetes. No known problems in father. SOCIAL HISTORY: The patient lives with his [place], they have 1 daughter. [place] is his healthcare proxy. 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 He has been smoking 1 pack per day for 37 years. He denies alcohol or other drug use. REVIEW OF SYSTEMS: A complete 10-point review of systems was performed and negatives. PHYSICAL EXAMINATION GENERAL: He is a well-appearing man, sitting up in stretcher, interacting with his and daughter, answers questions appropriately, although appears intermittently anxious and tearful; reports it is because anesthesia is wearing off. VITAL SIGNS: Afebrile, heart rate 87, blood pressure 127/59, respiratory rate 20, oxygen saturation 98% on room air. HEENT: With OP clear. Moist mucous membranes. Pupils equal, round, and reactive to light. NECK: Supple. No JVD. LUNGS: Clear to auscultation bilaterally. HEART: Regular rate and rhythm. No murmurs, gallops, or rubs. ABDOMEN: Soft, nontender, nondistended. EXTREMITIES: Warm and well perfused without evidence of edema. PERTINENT DIAGNOSTIC STUDIES/LABORATORY DATA: CBC and BMP 2 weeks ago were unremarkable. Chest x-ray 2 weeks ago without active cardiopulmonary disease. ASSESSMENT AND PLAN: Mr. Leach is a 48-year-old man with a history of chronic back pain, degenerative disk disease, worsening after prior spinal surgery and active tobacco use, who is presenting for a neurosurgical procedure. He is now status post T0 through L3 fusion and is being admitted to the medical service for monitoring postoperatively. 1. 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 Care per neurosurgical recommendations. The patient will likely have drain pulled out tomorrow. Tomorrow morning he can start to work with physical therapy with his back brace. Pain control ordered per Neurosurgery, maintain on bowel regimen p.r.n. while on narcotics. Continue the patient's home pain medications including amitriptyline, cyclobenzaprine, duloxetine, and pregabalin. 2. Active tobacco use. The patient requests nicotine replacement therapy in the form of patch. 3. DVT prophylaxis. The patient will be ambulatory. He is unable to start subcu heparin until postop day 2. TIME SPENT: Approximately 60 minutes were spent on admission of this patient, more than half of which was spent at bedside for interview and exam and in consultation with surgical services. [id number]/[facility] #: [id number] CHUCK
--- NOTE | 2019-06-15 22:57 | OP ---
DATE OF OPERATION: 06/15/19 - ROOM #340 DATE OF : 66 SURGEON: Fabian Khan M.D. TANGLED YARN SPOOL STRAIGHTENER: Ledy Orellana. ANESTHESIA: General. PRE-OP DIAGNOSIS: T12-L1 instability. POST-OP DIAGNOSIS: T12-L1 instability. OPERATIVE PROCEDURE: The patient underwent [id number] posterolateral arthrodesis with T10, T11, T12, L1, L2, and L3 bilateral pedicle screw placement, partial osteotomies at T12-L1, L1-L2, L2-L3 with DBX bone graft and cortical vessels to bones with intraoperative electrophysiological monitoring and intraoperative navigation. ESTIMATED BLOOD LOSS: 150 cc. COMPLICATIONS: None. 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 At that time, he was diagnosed with right T12-L1 disc herniation. The patient underwent discectomy. He tolerated the procedure well at that time and his preoperative symptoms resolved. Unfortunately, he started developing axial back pain and he was told that he may develop thoracolumbar instability. For this reason, he was offered the option of surgical intervention. After explaining expectation, limitations, possible complications of the procedure to the patient and his with complications including, but not limited to bleeding, infection, risk of injury to adjacent structures, paralysis, , need for additional procedures, anesthesia risk, stroke, blindness, cancer, instability, hardware failure, adjacent level disease, pseudoarthrosis, spinal fluid leak, injury to intrathoracic or intraabdominal organs including lung injury, blood vessels injury, bowel injury; need for additional procedures in the future, deep venous thrombosis, pulmonary embolism, postoperative hematoma, need for prolonged hospitalization, prolonged rehabilitation, prolonged ICU stay , need for tracheostomy or gastrostomy, anesthesia risks; the patient was agreeable to proceed with surgery and informed consent was obtained. The patient understood that his condition may not improve and in fact may get worse after the surgery and he may need to have additional procedure in the future. He also understood that operative plan may be modified according to intraoperative findings and conditions and that the procedure may be abandoned or done in more than 1 stages. DESCRIPTION OF PROCEDURE: The patient was brought to the operating room and was placed under general anesthesia by the anesthesia team. He was carefully positioned prone on the Benjamin table and all bony prominences were meticulously padded. His skin was prepped and draped in the standard fashion. The previous incision at the T12-L1 discectomy was identified and was extended cephalad and caudad. After infiltrating the skin with local anesthetic, a #10 surgical blade was used to incise the skin. The incision was was carried down to the dorsal fascia with the use of Bovie cautery. Self-retaining retractors were introduced into the field. Then, the dorsal fascia was divided in both sides of the midline with the use of Bovie cautery. The paraspinal musculature was elevated in subperiosteal fashion with the use of periosteal elevator and Bovie cautery. The remaining of the right kylie-lamina of T12 and the lamina as well as the facets and of L1, L2, and L3 as well as the of T12, T11 , and T10 were exposed and self-retaining retractors were introduced further into the field. The navigation star was secured over the spinous process in the caudal segment and intraoperative O-arm imaging was obtained and the patient 's data was transferred to the navigation platform. With the assistance of intraoperative navigation, the pedicles of T10, T11, T12, L1, and L2 were cannulated and pedicle screws from the [employer] were inserted. The second O- arm spin confirmed excellent placement of all hardware and extension of the intraoperative spin for lower level was performed. With use of intraoperative navigation, the procedure was repeated for the L3 pedicles and the peg screws were placed at L3 bilaterally. Final O-arm imaging confirmed excellent placement of the last hardware and excellent placement and alignment of the patient's spine. Then, attention was brought to decorticate all exposed bony surfaces including the transverse processes and performed partial osteotomies at the facets of T12-L1, L1-L2, and L2-L3. DBX putty and cortical cancellous chips were then inserted in order to facilitate the arthrodesis in all levels and into the exposed facets, and two titanium rods were contoured in order to connect the screw heads. The two rods were then inserted and connected with screw head caps. After final tightening and after copious irrigation, confirmation of meticulous hemostasis and meticulous inspection, the wound was closed by layers after placing 1 g of vancomycin into the wound and over 2 Aaron drains, which were tunneled through separate stab wound incisions. The dorsal fascia was approximated with 0 interrupted Vicryl sutures while the subcutaneous tissue was approximated with inverted interrupted 2-0 Vicryl sutures and 0 Vicryl sutures. The skin was then approximated with interrupted running 0 Prolene and was covered with sterile sponges. At the end of the procedure, all counts were reported to be correct. The patient remained hemodynamically stable throughout the case and intraoperative electrophysiological monitoring remained stable throughout the case. The patient was then turned supine, was extubated, and was transferred to recovery in excellent condition. The case was done with the assistance of an CASINO CAGE SUPERVISOR because of the complexity of the case. [id number]/[facility] #: [id number] CHUCK
[2019-06-16] MEDS: HYDROcodone/ACETAMIN 5-325 MG* 1 TAB PO PRN ×3 (00:10→09:07)
[2019-06-16] MEDS ORDERED: Morphine INJ* 2 MG/ML 1 ML SYRINGE (TWO MG - NEW SYRINGE VERSION) IV ONE (04:18)
[2019-06-16] MEDS ORDERED: Senna TAB 8.6 mg* TAB PO PRN (07:20)
--- NOTE | 2019-06-16 07:20 | PN ---
Subjective Date of Service: 06/16/19 Interval History: Out of OR yesterday. Overnight, patient's pain was not controlled with oral medications, and he required one dose of IV morphine - good response to 2mg. No other significant overnight events. Patient walked with PT today and is amenable to home PT. Very motivated to quit smoking. Denies new numbness, weakness, incontinence, or urinary retention. Denies constipation. Objective Active Medications: Acetaminophen (Tylenol Tab*) 650 mg PO Q4H PRN PRN Reason: MILD PAIN or TEMP > 100.4 Hydrocodone Bitart/Acetaminophen ([place] 5-325 Tab*) 1 tab PO Q4H PRN PRN Reason: moderate pain Last Admin: 06/16/19 04:12 Dose: 1 tab Amitriptyline HCl (Elavil Tab*) 25 mg PO BEDTIME [facility] Last Admin: 06/15/19 20:41 Dose: 25 mg Cyclobenzaprine HCl (Flexeril Tab*) 10 mg PO TID PRN PRN Reason: SPASMS Last Admin: 06/16/19 00:09 Dose: 10 mg Duloxetine HCl (Cymbalta Cap*) 30 mg PO BID [facility] Last Admin: 06/15/19 20:39 Dose: 30 mg Lactated Ringer's (Lactated Ringers 1000 Ml Bag*) 1,000 mls @ 75 mls/hr IV .per rate [facility] Magnesium Hydroxide (Milk Of Magnesia Liq*) 30 ml PO DAILY PRN PRN Reason: CONSTIPATION Nicotine (Nicotine Patch 21 Mg/24 Hr*) 1 patch TRANSDERM DAILY [facility] Last Admin: 06/15/19 18:25 Dose: 1 patch Ondansetron HCl (Zofran Inj*) 4 mg IV Q6H PRN PRN Reason: NAUSEA/VOMITING Pharmacy Profile Note (Nicotine Patch Removal Note*) 1 note PATCH OFF 2100 [facility] Last Admin: 06/16/19 00:06 Dose: Not Given Pregabalin (Lyrica Cap(*)) 75 mg PO TID [facility] Last Admin: 06/15/19 20:39 Dose: 75 mg Vital Signs - 8 hr 06/16/19 06/16/19 06/16/19 00:04 00:09 00:10 Temperature Pulse Rate Respiratory 18 18 18 Rate Blood Pressure (mmHg) O2 Sat by Pulse Oximetry 06/16/19 06/16/19 06/16/19 02:54 02:56 04:11 Temperature 98 F Pulse Rate 93 Respiratory 18 18 18 Rate Blood Pressure 102/65 (mmHg) O2 Sat by Pulse 97 Oximetry 06/16/19 06/16/19 06/16/19 04:12 04:45 07:09 Temperature Pulse Rate Respiratory 18 18 18 Rate Blood Pressure (mmHg) O2 Sat by Pulse Oximetry 06/16/19 07:10 Temperature Pulse Rate Respiratory 18 Rate Blood Pressure (mmHg) O2 Sat by Pulse Oximetry Oxygen Devices in Use Now: None Appearance: well appearing man in NAD, resting comfortably in bed Ears/Nose/Mouth/Throat: Clear Oropharnyx, Mucous Membranes Moist Neck: NL Appearance and Movements; NL JVP, Trachea Midline Respiratory: Symmetrical Chest Expansion and Respiratory Effort, Clear to Auscultation Cardiovascular: NL Sounds; No Murmurs; No JVD, RRR Abdominal: NL Sounds; No Tenderness; No Distention, No Hepatosplenomegaly Extremities: No Edema Skin: - - midline back incision with new bandage c/d/i, no drainage, drains removed; no tenderness around site on palpation Neurological: Alert and Oriented x 3 Assess/Plan/Problems-Billing Assessment: 48M with chronic back pain and instability, active tobacco use, is admitted s/p T10-L3 posterolateral arthrodesis. Tolerated procedure well. Can return home today after upright xray and PT evaluation. Will have short course of narcotics for pain control on DC. Also is very motivated to quit smoking and has been placed on NRT patch this admission, with patches at home.
[2019-06-16] MEDS: Pregabalin CAP(*) 25 MG PO SCH (09:06)
[2019-06-16] MEDS: DULoxetine DR CAP* 30 MG CAP.DR PO SCH (09:06)
[2019-06-16] MEDS: Nicotine PATCH 21 MG/24 HR* PATCH TRANSDERM SCH (09:07)
[2019-06-16] MEDS ORDERED: oxyCODONE/Acetamin 5/325 MG* TAB PO PRN ×2 (09:26)
--- NOTE | 2019-06-16 09:36 | PN ---
Progress Note - Progress Note Date of Service: 06/16/19 SOAP: Subjective: []No events ON. Tolerated procedure well yesterday. Ambulates. Voids. Tolerates PO well. Preop back pain has resolved. Incision pain present. Wants to go home. Objective: []VSS, Afebrile Wound s,c,d. Drain output noted, minimal. Drains were removed. Catheters appeared to be intact. No complications. Patient tolerated procedure well. AAOx3, LEENA, CN II-XII grossly intact Motor 5/5 all extremities Sensory grossly intact to light touch, except decreased sensation Right abdominal wall, lateral thigh, which was present prior to surgery. Assessment: [] 48 yom POD#1 T10 -L3 posterolateral arthrodesis. Plan: []Monitor VS, Neurochecks Encourage ambulation. XR pending this am. Will change [place] to Percocet. DC planning , possibly later today. Full instructions were given to the patient. No lifting, No bending, No driving. Brace when out of bed. May change dressing every two days. Keep incision dry May shower after two days. No baths. Follow up in our office in 7-10 days as schedules. Appreciate IM care. Ninfa Khan MD
[2019-06-16 11:30] VITALS: BP 112/77
--- NOTE | 2019-06-16 12:52 | DS ---
CC: Dr. Art Inman; Dr. Khan * DISCHARGE SUMMARY: DATE OF ADMISSION: 06/15/19 DATE OF DISCHARGE: 06/16/19 PRIMARY CARE PROVIDER: Dr. Art Inman. NEUROSURGEON: Dr. Khan. PRIMARY DIAGNOSES: 1. T12 through L1 instability. 2. Active tobacco use. 3. Chronic lower back pain. CONSULTATION: Dr. Khan of Neurosurgery. PROCEDURES: T10 through L3 posterolateral arthrodesis with bilateral pedicle screw placement, partial osteotomies, and DBX bone graft on 06/15/19. DISCHARGE MEDICATIONS: 1. Oxycodone/acetaminophen 10/650 every 6 hours as needed for severe pain. 2. Acetaminophen 650 mg every 12 hours as needed for gvlv-wq-ecpdhhct pain. 3. Ibuprofen 600 mg every 6 hours as needed for mild pain. 4. Amitriptyline 25 mg nightly. 5. Duloxetine 30 mg twice a day. 6. Pregabalin 75 mg 3 times a day. 7. Cyclobenzaprine 10 mg 3 times a day as needed for spasm. 8. Senna 1 tablet daily as needed for constipation. 9. Milk of magnesia 30 mL daily as needed for constipation. 10. Nicotine patch 21 mg daily for smoking cessation. HISTORY OF PRESENT ILLNESS/HOSPITAL COURSE: Mr. 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 He was diagnosed with a T12 through L1 herniation, underwent diskectomy and his symptoms largely resolved; however, he began developing axial back pain and was told that he developed thoracolumbar instability. It was recommended that the patient have another neurosurgical procedure and he was amenable to this plan and recently he was able to have insurance approval for the procedure. He was admitted to medical service on after a successful T10 through L3 posterolateral arthrodesis. On 06/16/19 , the patient had his drains removed by the neurosurgical team. His pain was controlled with oral Percocet. He was able to stand and walk with his brace on. Physical therapy assessment was ordered and the patient was able to ambulate 2 laps without assistive device, although he did decline stair training. He was amenable to follow up with outpatient physical therapy per neurosurgical recommendation. REVIEW OF SYSTEMS: On the day of discharge, a 10-point review of systems was performed and the patient reports that he has moderate back pain, which was controlled by Percocet. He denies constipation, nausea, vomiting, paresthesias , lower extremity weakness, incontinence, or urinary retention. He noted no drainage from his wound site. PERTINENT DIAGNOSTIC STUDIES: Scoliosis series x-ray was without significant abnormalities other than recent operative changes, official read pending. DISCHARGE PLAN: The patient will be discharged home with home PT. He was educated extensively by neurosurgical services to wear his brace when out of bed. He was told to avoid lifting, bending, or driving. He should avoid taking baths, but may shower after 2 days. He must keep his incision site dry and he may change the dressing every 2 days. He was given a course of Percocet in addition to his regularly scheduled home medications as well as a bowel regimen while on opioids. The patient also seemed very motivated to quit smoking and he was discharged with nicotine patches. It was recommended that he follow up with Dr. Khan in 7 to 10 days for further management and he should also follow up with his primary care physician for management of chronic pain and monitoring of smoking cessation. He should eat a healthy diet, low in processed foods, with activity as described above. DISPOSITION: Home. CONDITION: Improved. TIME SPENT: Approximately 60 minutes was spent on discharge of this patient, more than half of which was spent with care coordination at bedside for interview and exam. [id number]/[facility] #: [id number] CHUCK
== END 2019-06-16 12:56 | disposition home health service (06) | DRG 304 ==
LOC: INTOOBSV 06-15 05:44 → AA 06-15 05:44 → OBSVTOIN 06-15 14:05 → SSU 06-15 15:51
PROVIDERS: ADMIT Neurological Surgery; ATTEND Neurological Surgery
PROC: 0RGA0K1 Fusion of Thoracolumbar Vertebral Joint with Nonautologous Tissue Substitute, Posterior Approach, Posterior Column, Open Approach (ICD-10-PCS; 2019-06-15)
PROC: 0SG10K1 Fusion of 2 or more Lumbar Vertebral Joints with Nonautologous Tissue Substitute, Posterior Approach, Posterior Column, Open Approach (ICD-10-PCS; 2019-06-15)
PROC: 0RB90ZZ Excision of Thoracic Vertebral Disc, Open Approach (ICD-10-PCS; 2019-06-15)
PROC: 0RBB0ZZ Excision of Thoracolumbar Vertebral Disc, Open Approach (ICD-10-PCS; 2019-06-15)
PROC: 0SB20ZZ Excision of Lumbar Vertebral Disc, Open Approach (ICD-10-PCS; 2019-06-15)
PROC: 4A11X4G Monitoring of Peripheral Nervous Electrical Activity, Intraoperative, External Approach (ICD-10-PCS; 2019-06-15)
PROC: 8E0WXBZ Computer Assisted Procedure of Trunk Region (ICD-10-PCS; 2019-06-15)
PROC: 0RG70K1 Fusion of 2 to 7 Thoracic Vertebral Joints with Nonautologous Tissue Substitute, Posterior Approach, Posterior Column, Open Approach (ICD-10-PCS; principal; 2019-06-15 07:30)
DX: M53.2X5 Spinal instabilities, thoracolumbar region (principal); M48.062 Spinal stenosis, lumbar region with neurogenic claudication; G89.29 Other chronic pain; F17.210 Nicotine dependence, cigarettes, uncomplicated; M51.36 Other intervertebral disc degeneration, lumbar region; M41.9 Scoliosis, unspecified; M54.14 Radiculopathy, thoracic region; Z28.21 Immunization not carried out because of patient refusal; Z79.899 Other long term (current) drug therapy; Z88.6 Allergy status to analgesic agent
CPT/HCPCS: 72082; 76000; A9270-GY; C1713; C1776; J0330; J0690; J1100; J1170; J2250; J2270; J2405; J2704; J3010; J3370; J3490

== ENCOUNTER 2019-06-23 06:13 | Emergency (ER) | payer OTHER ==
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
[2019-06-23] MEDS ORDERED: HYDROcodone/ACETAMIN 5-325 MG* 1 TAB PO ONE (06:58)
--- OUTSIDE RECORDS SUMMARY | 2019-06-23 07:15 | XMS REPORT ---
:1970 Author Organization [facility] Care Team Providers Name Role Phone Unavailable Unavailable Unavailable Problems This patient has no known problems. Allergies, Adverse Reactions, Alerts Allergy Allergy Type Status Severity Reaction(s) Onset Inactive Treating Comments Name Date Date Clinician aspirin Base Active Unknown Reaction 2019-05 Rosa Beam Ingredient Unknown -29 Medications Ordered Filled Start Stop Current Ordering Indication Dosage Frequency Signature Comments Components Medication Medication Date Date Medication? Clinician (SIG) Name Name No Known No Known No None None None Medications Medications For This For This Patient Patient Procedures This patient has no known procedures. Results This patient has no known results.
--- OUTSIDE RECORDS SUMMARY | 2019-06-23 07:15 | XMS REPORT ---
:1970 Author Organization [facility] Care Team Providers Name Role Phone Unavailable Unavailable Unavailable Problems Condition Condition Condition Status Onset Resolution Last Treating Comments Name Details Category Date Date Treatment Clinician Date Nutrition nutritional Nutrition Active 2018-07 Winifred restriction 08-22 Antonio s 10:40: [id number] Safety structural Safety Active 2018-07 Winifred barriers 08-22 [place] present 10:40: [id number] Safety fall risk Safety Active 2018-07 Winifred factor 08-22 [place] present 10:40: [id number] Safety risk for Safety Active 2018-07 Winifred hospitaliza 08-22 Antonio tion 10:40: [id number] 00 Safety can be left Safety Active 2018-07 Winifred alone for 08-22 Antonio only short 10:40: [id number] periods 00 Musculoskel transfer Musculoske Active 2018-07 Winifred etal assistance letal 08-22 [place] required 10:40: [id number] 00 Musculoskel requires Musculoske Active 2018-07 Winifred etal human letal 08-22 [place] assist to 10:40: [id number] leave home 00 Allergies, Adverse Reactions, Alerts Allergy Allergy Type Status Severity Reaction(s) Onset Inactive Treating Comments Name Date Date Clinician aspirin Base Active Unknown Reaction 2019-05 Rosa Beam Ingredient Unknown -29 Medications Ordered Filled Start Stop Current Ordering Indication Dosage Frequency Signature Comments Components Medication Medication Date Date Medication? Clinician (SIG) Name Name acetaminoph acetaminoph 2018-07 Yes Dimopoulos Unknown Unknown en 325 mg en 325 mg 2- MDVassili tablet tablet os magnesium magnesium 2018-07 Yes Dimopoulos Unknown Unknown hydroxide hydroxide 2- MDVassili 400 mg/5 mL 400 mg/5 mL os oral oral suspension suspension oxyCODONE-a oxyCODONE-a 2018-07 Yes Dimopoulos Unknown Unknown cetaminophe cetaminophe 2- MD,Vassili n 5 mg-325 n 5 mg-325 os mg tablet mg tablet senna 8.6 senna 8.6 2018-07 Yes Dimopoulos Unknown Unknown mg tablet mg tablet 2- MD,Vassili os DULoxetine DULoxetine 2018-07 Yes Dimopoulos Unknown Unknown 30 mg 30 mg 2 MD,Vassili capsule,del capsule,del os ayed ayed release release ibuprofen ibuprofen 2018-07 Yes Dimopoulos Unknown Unknown 800 mg 800 mg 2- MD,Vassili tablet tablet os amitriptyli amitriptyli 2018-07 Yes Dimopoulos Unknown Unknown ne 25 mg ne 25 mg 2 MD,Vassili tablet tablet os cyclobenzap cyclobenzap 2018-07 Yes Dimopoulos Unknown Unknown rine 10 mg rine 10 mg 2 MD,Vassili tablet tablet os pregabalin pregabalin 2018-07 Yes Dimopoulos Unknown Unknown 75 mg 75 mg 2- MD,Vassili capsule capsule os Vital Signs Vital Name Observation Time Observation Value Comments SYSTOLIC mm[Hg] 2019-06-21 18:09:09 140 mm[Hg] mm[Hg] Method: Sit SYSTOLIC mm[Hg] 2019-06-21 18:09:09 148 mm[Hg] mm[Hg] Method: Stand DIASTOLIC mm[Hg] 2019-06-21 18:09:09 88 mm[Hg] mm[Hg] Method: Sit DIASTOLIC mm[Hg] 2019-06-21 18:09:09 88 mm[Hg] mm[Hg] Method: Stand PULSE 2019-06-21 18:09:09 80 /min /min RESP RATE 2019-06-21 18:09:09 18 /min /min TEMP 2019-06-21 18:09:09 98.0 [degF] Procedures This patient has no known procedures. Results This patient has no known results.
--- OUTSIDE RECORDS SUMMARY | 2019-06-23 07:15 | XMS REPORT ---
:1970 Author Organization [facility] Care Team Providers Name Role Phone Unavailable Unavailable Unavailable Problems Condition Condition Condition Status Onset Resolution Last Treating Comments Name Details Category Date Date Treatment Clinician Date Nutrition nutritional Nutrition Active 2018-07 Winifred restriction 08-22 Antonio s 10:40: [id number] 00 Safety structural Safety Active 2018-07 Winifred barriers 08-22 [place] present 10:40: [id number] 00 Safety fall risk Safety Active 2018-07 Winifred factor 08-22 [place] present 10:40: [id number] 00 Safety risk for Safety Active 2018-07 Winifred hospitaliza 08-22 Antonio tion 10:40: [id number] 00 Safety can be left Safety Active 2018-07 Winifred alone for 08-22 Antonio only short 10:40: [id number] periods 00 Musculoskel transfer Musculoske Active 2018-07 Winifred etal assistance letal 08-22 [place] required 10:40: [id number] Musculoskel requires Musculoske Active 2018-07 Winifred etal human letal 08-22 [place] assist to 10:40: [id number] leave home 00 Allergies, Adverse Reactions, Alerts [...] Observation Time Observation Value Comments SYSTOLIC mm[Hg] 2019-06-22 18:09:10 140 mm[Hg] mm[Hg] Method: Sit SYSTOLIC mm[Hg] 2019-06-21 18:09:09 148 mm[Hg] mm[Hg] Method: Stand DIASTOLIC mm[Hg] 2019-06-22 18:09:10 88 mm[Hg] mm[Hg] Method: Sit DIASTOLIC mm[Hg] 2019-06-21 18:09:09 88 mm[Hg] mm[Hg] Method: Stand PULSE 2019-06-22 18:09:10 80 /min /min RESP RATE 2019-06-21 18:09:09 18 /min /min TEMP 2019-06-21 18:09:09 98.0 [degF] Procedures This patient has no known procedures. Results This patient has no known results.
--- OUTSIDE RECORDS SUMMARY | 2019-06-23 07:15 | XMS REPORT ---
:1970 Author Organization [facility] Care Team Providers Name Role Phone Unavailable [...]
[2019-06-23 07:57] VITALS: BP 000/00
== END 2019-06-23 08:00 | disposition home or self-care (01) ==
LOC: ED 06:13
DX: M54.5 Low back pain (principal); Z98.1 Arthrodesis status; Z88.6 Allergy status to analgesic agent; Z72.0 Tobacco use
CPT/HCPCS: 99282